=== PATIENT | male | born 1965 | race Caucasian/White ===

== ENCOUNTER 2022-03-10 12:05 | Inpatient (IN) ==
[2022-03-10 13:51] LABS: Appearance Urine Clear (Clear); Bilirubin Urine Negative (Negative); Blood Urine Negative (Negative); Color Urine Yellow; Glucose Urine UA Negative (Negative); Ketones Urine Negative (Negative); Leukocyte Esterase Urine Negative (Negative); Nitrite Urine Negative (Negative); Protein Urine Negative (Negative); Specific Gravity Urine 1.008 (1.000-1.030); Urobilinogen Urine Negative (Negative)
[2022-03-10 13:58] LABS: Albumin Level 4.5 gm/dl (3.4-5.0); Anion Gap 6 (3-11); Bilirubin,Total 0.7 mg/dl (0.2-1.0); Calcium 9.9 mg/dl (8.5-10.1); Carbon Dioxide 28 mmol/L (21-32); Chloride 104 mmol/L (98-107); Potassium 4.3 mmol/L (3.5-5.1); Sodium 138 mmol/L (136-145)
[2022-03-10 14:04] LABS: Alanine Aminotransferase 26 U/L (7-52); Albumin Globulin Ratio 1.4 (0.9-2); Alkaline Phosphatase 84 U/L (34-104); Aspartate Aminotransferase 26 U/L (13-39); BUN Creatinine Ratio 16.3 (10-20); Blood Urea Nitrogen 15 mg/dl (6-23); Est GFR (African American) 107.4 ml/min; Est GFR (Non-African American) 92.6 ml/min; Globulin 3.3 gm/dl (2.5-4.0); Glucose 103 mg/dl (70-99(Fasting)); Total Protein 7.8 gm/dl (6.0-8.3)
[2022-03-10 14:05] LABS: Basophils # (auto) 0.02 K/uL (0-0.2); Basophils % (auto) 0.3 %; Eosinophils # (auto) 0.04 K/uL (0-0.5); Eosinophils % (auto) 0.6 %; Hemoglobin 16.6 g/dL (14.0-18.0); Immature Granulocytes # (auto) 0.01 K/uL (0.00-0.02); Immature Granulocytes % (auto) 0.1 %; Lymphocytes # (auto) 1.78 K/uL (1.2-3.4); Lymphocytes % (auto) 25.4 %; Mean Corpuscular Hemoglobin 33.1 pg (25-34); Mean Corpuscular Hgb Conc 35.3 g/dL (32-36); Mean Corpuscular Volume 93.6 fL (80-100); Mean Platelet Volume 8.8 fL (7.4-10.4); Monocytes # (auto) 0.54 K/uL (0.11-0.59); Monocytes % (auto) 7.7 %; Neutrophils # (auto) 4.63 K/uL (1.4-6.5); Neutrophils % (auto) 65.9 %; Platelet Count 222 K/uL (130-400); RDW Coefficient of Variation 14.2 % (11.5-14.5); RDW Standard Deviation 48.6 fL (36.4-46.3); Red Blood Count 5.02 M/uL (4.7-6.1); White Blood Count 7.02 K/uL (4.8-10.8)
--- NOTE | 2022-03-10 14:51 | Emergency Department Note ---
History of Present Illness General Chief complaint: Illness Stated complaint: NUMBNESS IN FEET AND LEGS, FINGERTIPS Time Seen by Provider: 03/10/22 14:04 Source: patient History of Present Illness Provider complaint: Numbness in the extremities Onset (ago): day(s) Location: upper extremity, lower extremity, left and right Pain Consistency: + constant Maximum Pain Intensity: 7 Quality: + other (Numbness) Relieved By: + none Associated symptoms: + fever/chills (Tactile fever in January but none since) and + headaches (Occasional headaches but no headache today); no chest pain, no cough, no nausea/vomiting or no shortness of breath This is a 56-year-old male who presents with numbness to his extremities. The patient states that he had unprotected sex with men sometime between November and January of this year. He states that he started to get tactile fevers in January and a sore in his mouth. He was originally treated for herpes simplex 1. He then underwent STI testing and had a positive syphilis test. [facility] and [facility] treated with penicillin G on February 19. About 24 hours later he developed numbness to his feet. He thought this was a complication of the penicillin shot and so ignored it. He has had progressive numbness to his feet which then extended into his lower legs about 10 days ago. He now states the numbness is in his arms and sometimes around his lips and his genital area. He does complain of pain to the back of his legs which he describes as a tightening of the muscles. He also states that he now has difficulty walking. He denies having any visual complaints, problems with mentation, weakness, difficulty swallowing or difficulty with his speech. He states that he gets headaches and was told by his doctor to take ibuprofen. He did go back to them recently and they did some blood work which was unremarkable. He does state that he had an HIV this month which was negative. He also had a negative COVID test. He did have a negative syphilis test in April of last year. He denies current fever, cough or cold symptoms, chest pain, shortness of breath, abdominal pain, vomiting, diarrhea or urinary symptoms. Home Medications Medication Instructions Recorded Confirmed Type ibuprofen 200 mg tablet (Advil) 200 mg PO UD PRN 03/10/22 03/10/22 History naproxen sodium 220 mg tablet 220 mg PO UD PRN 03/10/22 03/10/22 History (Aleve) Allergies Allergy/AdvReac Type Severity Reaction Status Date / Time No Known Allergies Allergy Unverified 03/10/22 15:10 Past Med/Surg History Medical History Herpes simplex type 1 infection Social History Smoking Status: Never smoker Feels Safe at Home: Yes Review of Systems See HPI for pertinent positives & negatives. and A total of 10 systems reviewed and were otherwise negative Physical Exam Vital Signs Vital Signs - 24 hr 03/10/22 12:13 03/10/22 14:05 03/10/22 15:00 Temperature 36.5 C Temperature Source Oral Pulse Rate 88 Pulse Rate [Apical] 71 79 Pulse Rhythm [Apical] Regular Regular Pulse Strength [Apical] Normal Normal Respiratory Rate 17 16 20 Respiratory Effort / Characteristics Non-Labored Spontaneous Non-Labored Non-Labored Respiratory Depth Normal Normal Normal Respiratory Pattern Regular Regular Blood Pressure 140/85 Blood Pressure [Left Arm] 137/84 142/89 H Blood Pressure Mean 103 Blood Pressure Mean [Left Arm] 101 106 Blood Pressure Position Sitting Blood Pressure Position [Left Arm] Lying Pulse Oximetry 98 98 98 Oxygen Delivery Method Room Air Room Air Sepsis Recent Fever Within 48 Hours No Sepsis New/Unexplained Change in Mental Status N/A Sepsis Action Taken by Nursing No Action Required 03/10/22 16:00 03/10/22 18:00 Temperature Temperature Source Pulse Rate Pulse Rate [Apical] 91 H 90 Pulse Rhythm [Apical] Regular Regular Pulse Strength [Apical] Normal Respiratory Rate 14 20 Respiratory Effort / Characteristics Non-Labored Spontaneous Non-Labored Respiratory Depth Normal Normal Respiratory Pattern Regular Blood Pressure Blood Pressure [Left Arm] 144/92 H 144/92 H Blood Pressure Mean Blood Pressure Mean [Left Arm] 109 109 Blood Pressure Position Blood Pressure Position [Left Arm] Sitting Pulse Oximetry 96 97 Oxygen Delivery Method Room Air Room Air Sepsis Recent Fever Within 48 Hours Sepsis New/Unexplained Change in Mental Status Sepsis Action Taken by Nursing Constitutional: Vital signs reviewed. Eyes: Pupils are equal round reactive to light. Conjunctiva are noninjected. ENT: Pharynx is clear without erythema or exudate. Mucous membranes are moist. Neck supple without meningeal signs. Respiratory: Clear to auscultation bilaterally. Breath sounds are equal bilaterally. Cardiovascular: Regular rate and rhythm. No rubs or gallops. GI: Soft, nondistended and nontender. Bowel sounds are present. Musculoskeletal: No peripheral edema. No lower extremity tenderness. Integumentary: No cyanosis. or jaundice. Neurologic: The patient is awake and alert. Cranial nerves II-XII are intact. Motor is 5 out of 5 all extremities. Sensation is intact to light touch all extremities with dysesthesia to the lower extremities throughout as well as the hands bilaterally. Normal speech. No pronator drift. No limb ataxia. Wide-based gait. Psychiatric: Normal affect. Procedures Lumbar Puncture Time Out Performed: No Patient Position: upright Skin Prep: Povidone-Iodine 1% Local Anesthetic: lidocaine 1% Amount of anesthesia used (mL): 3 Spinal Needle Gauge: 20G Interspace Used: L4-L5 Fluid Initially Obtained: clear Complications: none Additional Comments: I did obtain informed consent from the patient for lumbar puncture. I did discuss indications, possible complications and the consequences as well as pos sible alternatives with the patient. He was informed of the potential for infection, bleeding at the site and in the dural space, increased pain and headache, nerve damage with permanent neurologic deficits including paralysis. I did answer all of his questions regarding the procedure. He did consent to the procedure. Course Administered Medications Lidocaine (Lidocaine 5% 1 Patch) 1 patch TD HS IZABELA Stop: 04/09/22 20:19 Last Admin: 03/10/22 20:48 Dose: 1 patch Documented by: [id number] Discontinued Medications Acetaminophen (Acetaminophen 500 Mg Tab) 1,000 mg PO NOW STA Stop: 03/10/22 18:11 Last Admin: 03/10/22 18:17 Dose: 1,000 mg Documented by: [id number] Penicillin G Potassium 4 mu/ (Dextrose) 108 mls @ 100 mls/hr IV NOW STA; Protocol Stop: 03/10/22 17:57 Last Infusion: 03/10/22 19:47 Dose: 0 mls/hr Documented by: [id number] Admin: 03/10/22 18:17 Dose: 100 mls/hr Documented by: [id number] Sodium Chloride (Nss 1000ml) 1,000 mls @ 999 mls/hr IV .Q1H1M ONE Stop: 03/10/22 17:53 Last Infusion: 03/10/22 17:30 Dose: 0 mls/hr Documented by: [id number] Admin: 03/10/22 16:30 Dose: 999 mls/hr Documented by: [id number] Ketorolac Tromethamine (Ketorolac Tromethamine 15 Mg/Ml Vial) 15 mg IV NOW ONE Stop: 03/10/22 20:16 Last Admin: 03/10/22 20:48 Dose: 15 mg Documented by: [id number] Medical Decision Making Differential Diagnosis Meningitis, encephalitis, neurosyphilis, tabes dorsalis, intracranial mass, metabolic derangement, transverse myelitis Medical Records Attestation: I reviewed the patient's medical records. I did perform a limited focused review of portions of the patient's old chart on the electronic medical record. The patient has had no prior visits to [facility]. Home Medications Current Medication List: was personally reviewed by me Laboratory Data Attestation: I reviewed the patient's lab results. Result diagrams: 03/10/22 13:24 03/10/22 13:24 Lab Results 03/10/22 03/10/22 03/10/22 Range/Units 13:24 13:24 13:24 WBC 7.02 (4.8-10.8) K/uL RBC 5.02 (4.7-6.1) M/uL Hgb 16.6 (14.0-18.0) g/dL Hct 47.0 (42-52) % MCV 93.6 (80-100) fL MCH 33.1 (25-34) pg MCHC 35.3 (32-36) g/dL RDW Std Deviation 48.6 H (36.4-46.3) fL RDW Coeff of Seven 14.2 (11.5-14.5) % Plt Count 222 (130-400) K/uL MPV 8.8 (7.4-10.4) fL Immature Gran % (Auto) 0.1 % Neut % (Auto) 65.9 % Lymph % (Auto) 25.4 % Tate % (Auto) 7.7 % Eos % (Auto) 0.6 % Baso % (Auto) 0.3 % Neut # (Auto) 4.63 (1.4-6.5) K/uL Lymph # (Auto) 1.78 (1.2-3.4) K/uL Tate # (Auto) 0.54 (0.11-0.59) K/uL Eos # (Auto) 0.04 (0-0.5) K/uL Baso # (Auto) 0.02 (0-0.2) K/uL Immature Gran # (Auto) 0.01 (0.00-0.02) K/uL Sodium 138 (136-145) mmol/L Potassium 4.3 (3.5-5.1) mmol/L Chloride 104 (98-107) mmol/L Carbon Dioxide 28 (21-32) mmol/L Anion Gap 6 (3-11) BUN 15 (6-23) mg/dl Creatinine 0.92 (0.6-1.4) mg/dl Est Cr Clr Drug Dosing Not Reportable Est GFR ( Amer) 107.4 ml/min Est GFR (Non-Af Amer) 92.6 ml/min BUN/Creatinine Ratio 16.3 (10-20) Glucose 103 H (70-99(Fasting)) mg/dl Calcium 9.9 (8.5-10.1) mg/dl Magnesium (1.7-2.4) mg/dl Total Bilirubin 0.7 (0.2-1.0) mg/dl AST 26 (13-39) U/L ALT 26 (7-52) U/L Alkaline Phosphatase 84 (34-104) U/L Total Protein 7.8 (6.0-8.3) gm/dl Albumin 4.5 (3.4-5.0) gm/dl Globulin 3.3 (2.5-4.0) gm/dl Albumin/Globulin Ratio 1.4 (0.9-2) TSH (0.300-4.500) uIu/ml Urine Color Yellow Urine Appearance Clear (Clear) Urine pH 7.0 (4.5-7.5) Ur Specific [place] 1.008 (1.000-1.030) Urine Protein Negative (Negative) Urine Glucose (UA) Negative (Negative) Urine Ketones Negative (Negative) Urine Blood Negative (Negative) Urine Nitrite Negative (Negative) Urine Bilirubin Negative (Negative) Urine Urobilinogen Negative (Negative) Ur Leukocyte Esterase Negative (Negative) Fluid Comment CSF Appearance CSF Color Xanthrochromic CSF WBC (0-5) /uL CSF RBC (0-) /uL CSF Cell Count Tube # CSF Chemistry Tube # CSF Glucose (40-70) mg/dl CSF Total Protein (15-45) mg/dl CSF C.neoform/gat PCR (NotDetected) CSF CMV DNA (PCR) (NotDetected) CSF Enterovirus (PCR) (NotDetected) CSF E. coli K1 (PCR) (NotDetected) CSF H. influenzae (PCR) (NotDetected) CSF HSV I (PCR) (NotDetected) CSF HSV II (PCR) (NotDetected) CSF HHV 6 (PCR) (NotDetected) CSF L.monocytogenes PCR (NotDetected) CSF N. meningitidis PCR (NotDetected) CSF Parechovirus (PCR) (NotDetected) CSF S. agalactiae (PCR) (NotDetected) CSF S. pneumoniae (PCR) (NotDetected) CSF VZV DNA (PCR) (NotDetected) 03/10/22 03/10/22 03/10/22 Range/Units 13:24 13:24 16:45 WBC (4.8-10.8) K/uL RBC (4.7-6.1) M/uL Hgb (14.0-18.0) g/dL Hct (42-52) % MCV (80-100) fL MCH (25-34) pg MCHC (32-36) g/dL RDW Std Deviation (36.4-46.3) fL RDW Coeff of Seven (11.5-14.5) % Plt Count (130-400) K/uL MPV (7.4-10.4) fL Immature Gran % (Auto) % Neut % (Auto) % Lymph % (Auto) % Tate % (Auto) % Eos % (Auto) % Baso % (Auto) % Neut # (Auto) (1.4-6.5) K/uL Lymph # (Auto) (1.2-3.4) K/uL Tate # (Auto) (0.11-0.59) K/uL Eos # (Auto) (0-0.5) K/uL Baso # (Auto) (0-0.2) K/uL Immature Gran # (Auto) (0.00-0.02) K/uL Sodium (136-145) mmol/L Potassium (3.5-5.1) mmol/L Chloride (98-107) mmol/L Carbon Dioxide (21-32) mmol/L Anion Gap (3-11) BUN (6-23) mg/dl Creatinine (0.6-1.4) mg/dl Est Cr Clr Drug Dosing Est GFR ( Amer) ml/min Est GFR (Non-Af Amer) ml/min BUN/Creatinine Ratio (10-20) Glucose (70-99(Fasting)) mg/dl Calcium (8.5-10.1) mg/dl Magnesium 1.9 (1.7-2.4) mg/dl Total Bilirubin (0.2-1.0) mg/dl AST (13-39) U/L ALT (7-52) U/L Alkaline Phosphatase (34-104) U/L Total Protein (6.0-8.3) gm/dl Albumin (3.4-5.0) gm/dl Globulin (2.5-4.0) gm/dl Albumin/Globulin Ratio (0.9-2) TSH 1.307 (0.300-4.500) uIu/ml Urine Color Urine Appearance (Clear) Urine pH (4.5-7.5) Ur Specific [place] (1.000-1.030) Urine Protein (Negative) Urine Glucose (UA) (Negative) Urine Ketones (Negative) Urine Blood (Negative) Urine Nitrite (Negative) Urine Bilirubin (Negative) Urine Urobilinogen (Negative) Ur Leukocyte Esterase (Negative) Fluid Comment CSF Appearance CSF Color Xanthrochromic CSF WBC (0-5) /uL CSF RBC (0-) /uL CSF Cell Count Tube # CSF Chemistry Tube # CSF Glucose (40-70) mg/dl CSF Total Protein (15-45) mg/dl CSF C.neoform/gat PCR Not Detected (NotDetected) CSF CMV DNA (PCR) Not Detected (NotDetected) CSF Enterovirus (PCR) Not Detected (NotDetected) CSF E. coli K1 (PCR) Not Detected (NotDetected) CSF H. influenzae (PCR) Not Detected (NotDetected) CSF HSV I (PCR) Not Detected (NotDetected) CSF HSV II (PCR) Not Detected (NotDetected) CSF HHV 6 (PCR) Not Detected (NotDetected) CSF L.monocytogenes PCR Not Detected (NotDetected) CSF N. meningitidis PCR Not Detected (NotDetected) CSF Parechovirus (PCR) Not Detected (NotDetected) CSF S. agalactiae (PCR) Not Detected (NotDetected) CSF S. pneumoniae (PCR) Not Detected (NotDetected) CSF VZV DNA (PCR) Not Detected (NotDetected) 03/10/22 03/10/22 Range/Units 16:45 16:45 WBC (4.8-10.8) K/uL RBC (4.7-6.1) M/uL Hgb (14.0-18.0) g/dL Hct (42-52) % MCV (80-100) fL MCH (25-34) pg MCHC (32-36) g/dL RDW Std Deviation (36.4-46.3) fL RDW Coeff of Seven (11.5-14.5) % Plt Count (130-400) K/uL MPV (7.4-10.4) fL Immature Gran % (Auto) % Neut % (Auto) % Lymph % (Auto) % Tate % (Auto) % Eos % (Auto) % Baso % (Auto) % Neut # (Auto) (1.4-6.5) K/uL Lymph # (Auto) (1.2-3.4) K/uL Tate # (Auto) (0.11-0.59) K/uL Eos # (Auto) (0-0.5) K/uL Baso # (Auto) (0-0.2) K/uL Immature Gran # (Auto) (0.00-0.02) K/uL Sodium (136-145) mmol/L Potassium (3.5-5.1) mmol/L Chloride (98-107) mmol/L Carbon Dioxide (21-32) mmol/L Anion Gap (3-11) BUN (6-23) mg/dl Creatinine (0.6-1.4) mg/dl Est Cr Clr Drug Dosing Est GFR ( Amer) ml/min Est GFR (Non-Af Amer) ml/min BUN/Creatinine Ratio (10-20) Glucose (70-99(Fasting)) mg/dl Calcium (8.5-10.1) mg/dl Magnesium (1.7-2.4) mg/dl Total Bilirubin (0.2-1.0) mg/dl AST (13-39) U/L ALT (7-52) U/L Alkaline Phosphatase (34-104) U/L Total Protein (6.0-8.3) gm/dl Albumin (3.4-5.0) gm/dl Globulin (2.5-4.0) gm/dl Albumin/Globulin Ratio (0.9-2) TSH (0.300-4.500) uIu/ml Urine Color Urine Appearance (Clear) Urine pH (4.5-7.5) Ur Specific [place] (1.000-1.030) Urine Protein (Negative) Urine Glucose (UA) (Negative) Urine Ketones (Negative) Urine Blood (Negative) Urine Nitrite (Negative) Urine Bilirubin (Negative) Urine Urobilinogen (Negative) Ur Leukocyte Esterase (Negative) Fluid Comment CSF Appearance Clear CSF Color Colorless Xanthrochromic No xanthochromia CSF WBC 0 (0-5) /uL CSF RBC 0 (0-) /uL CSF Cell Count Tube # 3 CSF Chemistry Tube # 1 CSF Glucose 67 (40-70) mg/dl CSF Total Protein 81.1 H (15-45) mg/dl CSF C.neoform/gat PCR (NotDetected) CSF CMV DNA (PCR) (NotDetected) CSF Enterovirus (PCR) (NotDetected) CSF E. coli K1 (PCR) (NotDetected) CSF H. influenzae (PCR) (NotDetected) CSF HSV I (PCR) (NotDetected) CSF HSV II (PCR) (NotDetected) CSF HHV 6 (PCR) (NotDetected) CSF L.monocytogenes PCR (NotDetected) CSF N. meningitidis PCR (NotDetected) CSF Parechovirus (PCR) (NotDetected) CSF S. agalactiae (PCR) (NotDetected) CSF S. pneumoniae (PCR) (NotDetected) CSF VZV DNA (PCR) (NotDetected) Imaging Data Radiologist's Impression: Head CT 03/10/22 14:37 CT SCAN OF THE BRAIN WITHOUT IV CONTRAST CLINICAL HISTORY: Ataxia. COMPARISON STUDY: No priors. TECHNIQUE: Unenhanced axial CT scan of the brain is performed from the vertex to the skull base. A dose lowering technique was utilized adhering to the principles of ALARA. CT DOSE: 614.27 mGy.cm FINDINGS: Brain parenchyma: The brain parenchyma is normal in appearance. There is no hemorrhage, mass effect, or evidence of acute territorial ischemia by CT criteria. Truong-white matter differentiation is preserved. No extra-axial fluid collection is seen. Ventricles, sulci, cisterns: Normal in configuration. Intracranial vasculature: There is mild atherosclerotic calcification of the cavernous carotid arteries. Calvarium: Unremarkable. Sinuses and mastoids: The visualized paranasal sinuses are clear. The mastoid air cells are well pneumatized. Orbits: The bony orbits are grossly intact. IMPRESSION: There is no hemorrhage, mass effect, or evidence of acute territorial ischemia by CT criteria. ACT 112: Negative or not required by law. Electronically signed by: Kendall Gaitan M.D. 03/10/2022 3:43 PM MDM Narrative I did evaluate the patient as noted above. The patient is presenting with numbness to his legs which started at his feet 24 hours after receiving a penicillin shot for syphilis. He has subsequently developed numbness going up into his calves as well as his arms and more recently in his genitalia. He has some pain in his mid back as well as behind his calves. For the past week he has been having difficulty with balance and gait. On exam he does have dysesthesias to his legs and hands and has a wide-based unsteady gait. I was concerned about the possibility of neurosyphilis. He may have had asymptomatic neurosyphilis for some time which is now becoming symptomatic. Of course, other etiologies are possible. IV access was established. I did order a urine analysis. There is no evidence of infection. I did order and review the patient's blood work as noted in the electronic medical record. CBC is unremarkable without leukocytosis or anemia. Electrolytes and LFTs are unremarkable. TSH is within normal limits. I did order a FTA/ABS as well as an RPR which are pending. I did order a CT of the head is. I did review the images myself as well as the radiology report as described above. There is no evidence of acute intracranial abnormality. I did obtain informed consent for a lumbar puncture. I did discuss the case with Dr. Ramírez of neurology who agreed with my plan and he recommended I speak to an infectious disease doctor. As we do not have an infectious disease doctor at this hospital I did speak to Dr. Kevin at [facility]. He was also in agreement with my plan to perform lumbar puncture, treat empirically with penicillin and admit for further hospitalization regardless of the results. He recommended MRI of the spine during his hospitalization to evaluate for possible transverse myelitis or other etiologies. I did perform the lumbar puncture. He was given a liter of normal saline IV afterwards and 4,000,000 units of penicillin G. He did develop a headache and was given Tylenol p.o. CSF Gram stain is negative. Cell count shows 0 WBCs and 0 RBCs. Glucose is 67 and total protein is elevated at 81. CSF studies for meningitis are currently pending and CSF VDRL is also pending. I did discuss the test results with the patient. He will be hospitalized for further care and evaluation. I did discuss the case with the hospitalist and correctional case records supervisor. Impression & Plan Ataxia, Numbness and tingling in both hands, Numbness and tingling of both legs Discharge Plan Visit Data Chief Complaint: Illness Stated Complaint: NUMBNESS IN FEET AND LEGS, FINGERTIPS ED Provider: Alex Wayne Discharge Problem: Ataxia, Numbness and tingling in both hands, Numbness and tingling of both legs Patient Disposition: Home - Self-Care Forms Stand Alone Forms: [facility], Virtual Emergency Department, Important Visit Information Prescriptions Prescriptions: No Action naproxen sodium [Aleve] 220 mg Tablet 220 mg PO UD PRN (Reason: Pain) RF: 0 ibuprofen [Advil] 200 mg Tablet 200 mg PO UD PRN (Reason: Pain) RF: 0 Referrals Referrals: PCP,NO [Primary Care Provider] -
--- NOTE | 2022-03-10 15:44 | CT Scan Report ---
CT SCAN OF THE BRAIN WITHOUT IV CONTRAST CLINICAL HISTORY: Ataxia. COMPARISON STUDY: No priors. TECHNIQUE: Unenhanced axial CT scan of the brain is performed from the vertex to the skull base. A d ose lowering technique was utilized adhering to the principles of ALARA. CT DOSE: 614.27 mGy.cm FINDINGS: Brain parenchyma: The brain parenchyma is normal in appearance. There is no hemorrhage, mass effect, or evidence of acute territorial ischemia by CT criteria. Truong-white matter differentiation is preser denise. No extra-axial fluid collection is seen. Ventricles, sulci, cisterns: Normal in configuration. Intracranial vasculature: There is mild atherosclerotic calcification of the cavernous carotid arteri es. Calvarium: Unremarkable. Sinuses and mastoids: The visualized paranasal sinuses are clear. The mastoid air cells are well pneu matized. Orbits: The bony orbits are grossly intact. IMPRESSION: There is no hemorrhage, mass effect, or evidence of acute territorial ischemia by CT cri teria. ACT 112: Negative or not required by law. Electronically signed by: Kendall Gaitan M.D. 03/10/2022 3:43 PM
[2022-03-10] MEDS ORDERED: PENICILLIN G POTASSIUM 4 MU in DEXTROSE 5% 100 ML IV STA (16:53)
[2022-03-10] MEDS ORDERED: SODIUM CHLORIDE 0.9% 1000ML 1,000 ML IV ONE (16:53)
[2022-03-10 17:29] LABS: Total Protein CSF 81.1 mg/dl (15-45)
[2022-03-10] MEDS ORDERED: ACETAMINOPHEN 500 MG TAB PO STA (18:10)
[2022-03-10 18:18] LABS: Appearance CSF Clear; CSF Count Tube # 3; CSF Xanthrochromic No xanthochromia; Color CSF Colorless; Red Blood Cell CSF (A) 0 /uL (0-); White Blood Cell CSF (A) 0 /uL (0-5)
[2022-03-10 18:54] LABS: Cryptococcus neoformans/ga PCR Not Detected (NotDetected); Cytomegalovirus PCR Not Detected (NotDetected); Enterovirus PCR Not Detected (NotDetected); Escherichia coli K1 PCR Not Detected (NotDetected); Haemophilius influenzae PCR Not Detected (NotDetected); Herpes Simplex Virus 1 PCR Not Detected (NotDetected); Herpes Simplex Virus 2 PCR Not Detected (NotDetected); Human Herpes Virus 6 PCR Not Detected (NotDetected); Human Parechovirus PCR Not Detected (NotDetected); Listeria monocytogenes PCR Not Detected (NotDetected); Neisseria meningitidis PCR Not Detected (NotDetected); Streptococcus agalactiae PCR Not Detected (NotDetected); Streptococcus pneumoniae PCR Not Detected (NotDetected); Varicella Zoster Virus PCR Not Detected (NotDetected)
[2022-03-10] MEDS ORDERED: KETOROLAC TROMETHAMINE 15 MG/ML VIAL IV ONE (20:15)
--- NOTE | 2022-03-10 20:15 | History & Physical Report ---
Date of Service March 10, 2022 Assessment & Plan (1) Back pain of thoracolumbar region: Plan: With myelopathy/neuropathy symptoms ? Tertiary syphilis (timing of late neurologic complication somewhat unusual given recent diagnosis of primary syphilis by [facility] a few weeks ago) Differential diagnosis: Transverse myelitis, spinal cord tumor, WAFER ABRADING MACHINE TENDER Lyme Patient nontoxic. Situational hypertension OBS [facility] Analgesia Check Lyme screen [facility] consult Re: Back pain with neurologic symptoms, history of primary syphilis status post penicillin Rx (ER provider already in touch with [facility] specialist Dr. Kevin who recommends presumptive treatment for tertiary syphilis for now. Dr. Kevin further recommends MRI imaging of the spine to rule out other potential explanations for patient's back pain/neurologic symptoms.) Further management pending work-up results. DVT prophylaxis. Lovenox subcu Full code Patient requests for his medical information to be kept confidential and not to be disclosed to anybody without his permission ( and family included). Text document was generated using [employer] voice recognition software. It may contain grammatical or spelling errors. Kindly contact undersigned for clarification of any documentation item in question. History of Present Illness Chief Complaint: Worsening back pain, weakness/numbness of the legs Primary Care Provider: Dr. Moraes History obtained from patient and records. Medical history significant for recent diagnosis of syphilis. 4 months ago, patient noted intermittent fever, chills with occasional headaches. No cough symptoms. COVID-19 exposure at home. Patient received COVID-19 vac cination. Last month, patient developed a mouth sore attributed to HSV by local urgent care center. Improved by outpatient antiviral course. Patient had recurrence of mouth sore a few weeks later. STD testing performed by local urgent care center. Patient tested positive for syphilis. Patient admits to sexual contact with other men without the knowledge of his . Patient directed to local [facility] for evaluation of positive syphilis test. Outpatient HIV test negative as per patient. Patient given 1 dose of IM Penicillin 2 weeks ago for primary syphilis as per patient. Last week, patient noted worsening mid back pain with some radiation to the upper arms and lower extremities. Progressive lower extremity weakness and numbness as well. Some tingling on both feet. Patient having more trouble walking and requiring a cane to walk. No recent trauma. No recollection of recent tick exposure. Patient sent to ER for evaluation for worsening symptoms. Diagnostic LP done at the ER. Penicillin administered at the ER for possible tertiary syphilis as per [facility] recommendation. 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 Allergies Allergy/AdvReac Type Severity Reaction Status Date / Time No Known Allergies Allergy Unverified 03/10/22 15:10 Home Medications Medication Instructions Recorded Confirmed Type ibuprofen 200 mg tablet (Advil) 200 mg PO UD PRN 03/10/22 03/10/22 History naproxen sodium 220 mg tablet 220 mg PO UD PRN 03/10/22 03/10/22 History (Aleve) Past Med/Surg History Medical History Herpes simplex type 1 infection Social History Smoking Status: Never smoker Second Hand Exposure: No; Do You Dip or Chew Tobacco: No; Tobacco Cessation Education Requested by Patient: No Hx Alcohol Use: Yes Alcohol type: wine Hx Substance Use: No Preferred Language: Kiswahili Communication Ability: Effective Electronic 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 Required: No Beliefs That Will Affect Care: None Current Living Situation: Spouse Other Information That Helps Us Care for You: No Feels Safe at Home: Yes Safety Concerns: Feels Safe At This Time Assistive Devices: Cane Review of Systems Review of Systems: As per HPI, all other systems reviewed and negative Physical Exam Physical Exam: GENERAL: Slightly uncomfortable, pleasant, no respiratory distress SKIN: Normal color, warm HEENT: bespectacled, pinkp alpebral conjunctivae, no ptosis, moist buccal mucosa NECK : Supple, no tenderness CHEST : CTA, no tenderness HEART : RRR, no obvious murmurs BACK : Mid back tenderness ABDOMEN: no distention, nontender EXTREMITIES : No LE swelling/tenderness, no other conspicuous deformities noted NEUROLOGIC : Coherent, no facial asymmetry, MMTS : BUE 4/5, BLE 3/5, gait and stance not assessed Results & Data Results & Data ([place]) Vital Signs (Past 12 Hours) Vital Signs Temp Pulse Pulse Resp BP BP Pulse Ox 03/10/22 18:00 90 20 144/92 H 97 03/10/22 16:00 91 H 14 144/92 H 96 03/10/22 15:00 79 20 142/89 H 98 03/10/22 14:05 71 16 137/84 98 03/10/22 12:13 36.5 C 88 17 140/85 98 Laboratory Results Laboratory Results WBC 7.02 K/uL (4.8-10.8) 03/10/22 13:24 RBC 5.02 M/uL (4.7-6.1) 03/10/22 13:24 Hgb 16.6 g/dL (14.0-18.0) 03/10/22 13:24 Hct 47.0 % (42-52) 03/10/22 13:24 MCV 93.6 fL (80-100) 03/10/22 13:24 MCH 33.1 pg (25-34) 03/10/22 13:24 MCHC 35.3 g/dL (32-36) 03/10/22 13:24 RDW Std Deviation 48.6 fL (36.4-46.3) H 03/10/22 13:24 RDW Coeff of Seven 14.2 % (11.5-14.5) 03/10/22 13:24 Plt Count 222 K/uL (130-400) 03/10/22 13:24 MPV 8.8 fL (7.4-10.4) 03/10/22 13:24 Immature Gran % (Auto) 0.1 % 03/10/22 13:24 Neut % (Auto) 65.9 % 03/10/22 13:24 Lymph % (Auto) 25.4 % 03/10/22 13:24 Bremer % (Auto) 7.7 % 03/10/22 13:24 Eos % (Auto) 0.6 % 03/10/22 13:24 Baso % (Auto) 0.3 % 03/10/22 13:24 Neut # (Auto) 4.63 K/uL (1.4-6.5) 03/10/22 13:24 Lymph # (Auto) 1.78 K/uL (1.2-3.4) 03/10/22 13:24 Bremer # (Auto) 0.54 K/uL (0.11-0.59) 03/10/22 13:24 Eos # (Auto) 0.04 K/uL (0-0.5) 03/10/22 13:24 Baso # (Auto) 0.02 K/uL (0-0.2) 03/10/22 13:24 Immature Gran # (Auto) 0.01 K/uL (0.00-0.02) 03/10/22 13:24 Sodium 138 mmol/L (136-145) 03/10/22 13:24 Potassium 4.3 mmol/L (3.5-5.1) 03/10/22 13:24 Chloride 104 mmol/L (98-107) 03/10/22 13:24 Carbon Dioxide 28 mmol/L (21-32) 03/10/22 13:24 Anion Gap 6 (3-11) 03/10/22 13:24 BUN 15 mg/dl (6-23) 03/10/22 13:24 Creatinine 0.92 mg/dl (0.6-1.4) 03/10/22 13:24 Est Cr Clr Drug Dosing Not Reportable 03/10/22 13:24 Est GFR ( Amer) 107.4 ml/min 03/10/22 13:24 Est GFR (Non-Af Amer) 92.6 ml/min 03/10/22 13:24 BUN/Creatinine Ratio 16.3 (10-20) 03/10/22 13:24 Glucose 103 mg/dl (70-99(Fasting)) H 03/10/22 13:24 Calcium 9.9 mg/dl (8.5-10.1) 03/10/22 13:24 Total Bilirubin 0.7 mg/dl (0.2-1.0) 03/10/22 13:24 AST 26 U/L (13-39) 03/10/22 13:24 ALT 26 U/L (7-52) 03/10/22 13:24 Alkaline Phosphatase 84 U/L (34-104) 03/10/22 13:24 Total Protein 7.8 gm/dl (6.0-8.3) 03/10/22 13:24 Albumin 4.5 gm/dl (3.4-5.0) 03/10/22 13:24 Globulin 3.3 gm/dl (2.5-4.0) 03/10/22 13:24 Albumin/Globulin Ratio 1.4 (0.9-2) 03/10/22 13:24 Urine Color Yellow 03/10/22 13:24 Urine Appearance Clear (Clear) 03/10/22 13:24 Urine pH 7.0 (4.5-7.5) 03/10/22 13:24 Ur Specific Florence 1.008 (1.000-1.030) 03/10/22 13:24 Urine Protein Negative (Negative) 03/10/22 13:24 Urine Glucose (UA) Negative (Negative) 03/10/22 13:24 Urine Ketones Negative (Negative) 03/10/22 13:24 Urine Blood Negative (Negative) 03/10/22 13:24 Urine Nitrite Negative (Negative) 03/10/22 13:24 Urine Bilirubin Negative (Negative) 03/10/22 13:24 Urine Urobilinogen Negative (Negative) 03/10/22 13:24 Ur Leukocyte Esterase Negative (Negative) 03/10/22 13:24 Fluid Comment 03/10/22 16:45 CSF Appearance Clear 03/10/22 16:45 CSF Color Colorless 03/10/22 16:45 Xanthrochromic No xanthochromia 03/10/22 16:45 CSF WBC 0 /uL (0-5) 03/10/22 16:45 CSF RBC 0 /uL (0-) 03/10/22 16:45 CSF Cell Count Tube # 3 03/10/22 16:45 CSF Chemistry Tube # 1 03/10/22 16:45 CSF Glucose 67 mg/dl (40-70) 03/10/22 16:45 CSF Total Protein 81.1 mg/dl (15-45) H 03/10/22 16:45 CSF C.neoform/gat PCR Not Detected (NotDetected) 03/10/22 16:45 CSF CMV DNA (PCR) Not Detected (NotDetected) 03/10/22 16:45 CSF Enterovirus (PCR) Not Detected (NotDetected) 03/10/22 16:45 CSF E. coli K1 (PCR) Not Detected (NotDetected) 03/10/22 16:45 CSF H. influenzae (PCR) Not Detected (NotDetected) 03/10/22 16:45 CSF HSV I (PCR) Not Detected (NotDetected) 03/10/22 16:45 CSF HSV II (PCR) Not Detected (NotDetected) 03/10/22 16:45 CSF HHV 6 (PCR) Not Detected (NotDetected) 03/10/22 16:45 CSF L.monocytogenes PCR Not Detected (NotDetected) 03/10/22 16:45 CSF N. meningitidis PCR Not Detected (NotDetected) 03/10/22 16:45 CSF Parechovirus (PCR) Not Detected (NotDetected) 03/10/22 16:45 CSF S. agalactiae (PCR) Not Detected (NotDetected) 03/10/22 16:45 CSF S. pneumoniae (PCR) Not Detected (NotDetected) 03/10/22 16:45 CSF VZV DNA (PCR) Not Detected (NotDetected) 03/10/22 16:[address] 03/10/22 14:37 CT SCAN OF THE BRAIN WITHOUT IV CONTRAST CLINICAL HISTORY: Ataxia. COMPARISON STUDY: No priors. TECHNIQUE: Unenhanced axial CT scan of the brain is performed from the vertex to the skull base. A dose lowering technique was utilized adhering to the principles of ALARA. CT DOSE: 614.27 mGy.cm FINDINGS: Brain parenchyma: The brain parenchyma is normal in appearance. There is no hemorrhage, mass effect, or evidence of acute territorial ischemia by CT criteria. Truong-white matter differentiation is preserved. No extra-axial fluid collection is seen. Ventricles, sulci, cisterns: Normal in configuration. Intracranial vasculature: There is mild atherosclerotic calcification of the cavernous carotid arteries. Calvarium: Unremarkable. Sinuses and mastoids: The visualized paranasal sinuses are clear. The mastoid air cells are well pneumatized. Orbits: The bony orbits are grossly intact. IMPRESSION: There is no hemorrhage, mass effect, or evidence of acute territorial ischemia by CT criteria. ACT 112: Negative or not required by law. Electronically signed by: Kendall Gaitan M.D. 03/10/2022 3:43 PM
[2022-03-10] MEDS ORDERED: LORazepam 2 MG/1 ML VIAL IV PRN (20:25)
[2022-03-10] MEDS: LIDOCAINE 5% 1 PATCH TD SCH (20:48)
[2022-03-10] MEDS ORDERED: PENICILLIN G POTASSIUM 4 MU in DEXTROSE 5% 100 ML IV SCH (22:00)
[2022-03-10 22:04] LABS: Lyme Ab IgM w/WB Rflx Negative (Negative)
[2022-03-10 22:06] LABS: Lyme Ab IgG w/WB Rflx Positive (Negative)
[2022-03-11] MEDS: IBUPROFEN 200 MG TAB PO PRN ×4 (00:11→20:33)
[2022-03-11] MEDS: LORazepam 2 MG/1 ML VIAL IV PRN (00:11)
[2022-03-11] MEDS ORDERED: GADOBUTROL 65ML VIAL IV ONE (01:44)
[2022-03-11] MEDS ORDERED: Flu Vaccine (Fluarix) 0.5mL SYR (Standard Dose) IM ONE (02:15)
[2022-03-11] MEDS: KETOROLAC TROMETHAMINE 15 MG/ML VIAL IV PRN (02:17)
[2022-03-11] MEDS: PENICILLIN G POTASSIUM 4 MU in DEXTROSE 5% 100 ML IV SCH ×6 (02:23→22:31)
[2022-03-11] MEDS ORDERED: SODIUM CHLORIDE 0.9% 1000ML 1,000 ML IV ONE (04:32)
[2022-03-11] MEDS ORDERED: KETOROLAC TROMETHAMINE 15 MG/ML VIAL IV ONE (04:32)
[2022-03-11 04:51] LABS: Rapid Plasma Reagin Reactive (Nonreactive)
[2022-03-11] MEDS: traMADol HCL 50 MG TABLET PO PRN ×5 (06:33→22:28)
[2022-03-11] MEDS: ENOXAPARIN INJ 40 MG/0.4 ML SYR SQ SCH (07:17)
--- NOTE | 2022-03-11 08:38 | Magnetic Resonance Report ---
CLINICAL HISTORY: arm/leg weakness TECHNIQUE: MRI of the cervical spine is performed utilizing various T1 and T2 sequences in the axial and sagittal planes. IV contrast was administered for this examination. Comparison: None available at the time of this dictation. FINDINGS: Cervical spine: There is grade 1 retrolisthesis of C5-C6. The atlantodental articulation appears main tained. No destructive bony lesion is seen. Anterior epidural enhancement is favored to represent a venous prominence rather than spinal lesion. Intervertebral discs: Degenerative changes are noted in the discs and vertebral bodies. Spinal cord: The cervical spinal cord is normal in morphology and signal intensity. C2-C3: Unremarkable. C3-C4: A small posterior disc bulge is seen without significant canal stenosis. C4-C5: Broad-based posterior disc bulge, facet arthropathy, and retrolisthesis combine to create mild canal stenosis. There is mild bilateral neuroforaminal stenosis. C5-C6: Unremarkable. C6-C7: Unremarkable. C7-T1: Unremarkable. Soft tissues: The paraspinous and prevertebral soft tissues are normal in appearance. Brain parenchyma: Partially imaged brain parenchyma at the skull base is within normal limits. IMPRESSION: Degenerative changes as above resulting in up to mild canal stenosis. ACT 112: Negative or not required by law. Electronically signed by: Julio Cesar Bates M.D. 03/11/2022 8:36 AM
--- NOTE | 2022-03-11 08:41 | Magnetic Resonance Report ---
MR lumbar spine wo/w con CLINICAL HISTORY: arm/leg weakness TECHNIQUE: 3 plane localizer images, sagittal T2, sagittal T1, sagittal STIR, axial T1, axial T2 savanna g with postcontrast axial T1 and sagittal T1 fat-saturated sequences were obtained of the lumbar spin e, before and after intravenous administration of 12 mL of MultiHance. Comparison: None available at the time of this dictation. FINDINGS: The alignment is anatomical. Degenerative changes are noted in the discs and vertebral bodies. L1-L2: Small posterior disc bulge without significant canal or neuroforaminal stenosis. L2-L3: No significant abnormality. L3-L4: No significant abnormality. L4-L5: A small posterior disc bulge is seen without significant canal or neuroforaminal stenosis. L5-S1: No significant abnormality. The spinal ligaments are intact, without evidence of disruption or abnormal signal intensity. The spi nal cord is normal in signal intensity and there is no evidence of cord contusion. There is no eviden ce of an extradural, intradural, extramedullary or intramedullary lesion. Visualized soft tissues are normal. IMPRESSION: Mild degenerative disc disease without significant stenosis. No enhancing lesions are seen. ACT 112: Negative or not required by law. Electronically signed by: Julio Cesar Bates M.D. 03/11/2022 8:40 AM
[2022-03-11 08:58] LABS: Basophils # (auto) 0.02 K/uL (0-0.2); Basophils % (auto) 0.2 %; Eosinophils # (auto) 0.06 K/uL (0-0.5); Eosinophils % (auto) 0.7 %; Hematocrit (blood only) 41.7 % (42-52); Hemoglobin 14.4 g/dL (14.0-18.0); Immature Granulocytes # (auto) 0.01 K/uL (0.00-0.02); Immature Granulocytes % (auto) 0.1 %; Lymphocytes % (auto) 22.8 %; Mean Corpuscular Hgb Conc 34.5 g/dL (32-36); Mean Corpuscular Volume 92.7 fL (80-100); Mean Platelet Volume 9.1 fL (7.4-10.4); Monocytes % (auto) 8.4 %; Neutrophils # (auto) 5.63 K/uL (1.4-6.5); Neutrophils % (auto) 67.8 %; Platelet Count 203 K/uL (130-400); RDW Standard Deviation 47.5 fL (36.4-46.3); White Blood Count 8.32 K/uL (4.8-10.8)
--- NOTE | 2022-03-11 09:27 | Magnetic Resonance Report ---
MRI OF THE THORACIC SPINE COMBO CLINICAL HISTORY: Upper and lower extremity weakness. Recent diagnosis of syphilis. COMPARISON STUDY: No priors. TECHNIQUE: MRI of the thoracic spine is performed utilizing various T1 and T2 sequences in the axial and sagittal planes. Contrast-enhanced sequences were acquired following the IV administration of 7.5 cc of Gadavist. FINDINGS: Vertebral body height and alignment are maintained throughout the cervical spine. Normal ma rrow signal intensity is preserved throughout the visualized bony structures. The spinous processes a ppear intact. No destructive bony lesion is seen. The intervertebral discs are normal in height and s ignal intensity. Minimal disc bulge eccentric to the left is seen at T8-T9. There is no large disc he rniation or central canal stenosis. There is no clear evidence of epidural fluid collection. There is thickening and enhancement of the posterior epidural space seen from T2 through T6. There is no sign ificant associated mass effect and this likely represents prominent epidural fat and venous structure s. The thoracic spinal cord is normal in morphology and signal intensity. The conus medullaris termin ates at the level of L1. No abnormal postcontrast enhancement is identified. There is no evidence of high-grade neural foraminal stenosis throughout the thoracic region. The paraspinous soft tissues are within normal limits. The lung parenchyma is grossly unremarkable but not well evaluated by MRI. A 1 .6 cm cyst is noted in the upper pole of the right kidney. IMPRESSION: 1. There is no disc herniation, central canal stenosis, or neural foraminal narrowing seen throughout the thoracic region. 2. No osseous abnormality is seen involving the thoracic spine. 3. The thoracic cord is normal in morphology and signal intensity with no abnormal postcontrast enhan cement. 4. No epidural fluid collection is clearly identified. 5. There is thickening and enhancement of the epidural space posteriorly seen from T2 through T6. The re is no associated mass effect and this likely represents prominent epidural fat and venous structur es. If the patient clinically worsens a short-term follow-up examination could be considered for reas seslupillo. Dictated: 03/11/2022 8:23 AM Transcribed: 03/11/2022 9:13 AM Amber [id number] [email or web address] Electronically signed by: Kendall Gaitan M.D. 03/11/2022 9:26 AM
[2022-03-11] MEDS ORDERED: cefTRIAXone SODIUM 2,000 MG in DEXTROSE 5% 50 ML IV SCH (10:00)
--- NOTE | 2022-03-11 19:13 | Hospitalist Progress Note ---
Date of Service March 11, 2022 Assessment & Plan (1) Numbness and tingling in both hands: Plan: Might be related to Lyme disease VS neurosyphillis ( doubt due to the duration of his syphilis diagnosis ) CT head showed no acute intracranial abnormality MRI cervical showed degenerative changes as above resulting in up to mild canal stenosis. Lumbar MRI showed mild degenerative disc disease without significant stenosis. No enhancing lesions are seen. MRI thoracic showed thickening and enhancement of the epidural space posteriorly seen from T2 through T6. no associated mass effect and this likely represents prominent epidural fat and venous structures. LP done showed no Lyme detected Protein Elevated on CSF CSF VDRL pending Continue pain control with tramaol NSAID/ Tylenol Will discuss MRI thoracic result with spine orthopedic RPR and Lyme titer positive Continue physical therapy and occupational therapy Syphilis Patient requests for his medical information to be kept confidential and not to be disclosed to anybody without his permission Pt does not want us to mention the word syphilis in front of his RPR testing positive Patient directed to local [facility] for evaluation of positive syphilis test. Received 1 dose of IM Penicillin 2 weeks ago outpatient Continue IV penicillin ID consulted- pending Will encourage patient to discuss his positive syphilis with his that she can get testing and treated (if testing positive) Lyme disease Lyme IGG ab positive Pt said that he never treated for lyme disease in the past Western Blot pending Currently on Penicillin for Syphilis DVT px on Lovenox Code status Full code (2) Numbness and tingling of both legs: Plan: Possible Admission and Anticipated Discharge Date Admission Date: March 10, 2022 Subjective Patient was seen and examined for follow-up of back pain associated with lower extremity numbness Lying in bed with no acute distress. Patient said back pain is improved He said that his numbness seem to feel better Denies any fever, palpitation, dizziness and SOB Review of Systems Review of Systems: All systems reviewed & are unremarkable except as noted in Subjective Physical Exam Physical Exam: General- No acute distress Head- atraumatic Eyes- PERRL, EOMI, ENT- oropharynx clear Neck- supple, no JVD Lungs- clear to auscultation Heart- regular rhythm; no murmur Abdomen- normal bowel sounds, soft, nontender Extremities- no calf tenderness Neuro- alert, oriented x 3; PERRL, EOMI; no facial palsy; no dysarthria Skin- warm & dry Results & Data Results & Data ([facility]) Vital Signs (Past 12 Hours) Vital Signs Temp Pulse Resp BP Pulse Ox 03/11/22 15:16 36.7 C 81 16 120/77 94 03/11/22 07:36 36.7 C 64 16 157/92 H 95
[2022-03-11] MEDS: LIDOCAINE 5% 1 PATCH TD SCH (20:30)
[2022-03-11] MEDS: PROMETHAZINE HCL 6.25 MG in SODIUM CHLORIDE 0.9% 50 ML IV PRN (22:36)
[2022-03-12] MEDS: PENICILLIN G POTASSIUM 4 MU in DEXTROSE 5% 100 ML IV SCH ×6 (01:52→22:58)
[2022-03-12] MEDS: IBUPROFEN 200 MG TAB PO PRN ×2 (08:21→19:31)
[2022-03-12] MEDS: KETOROLAC TROMETHAMINE 15 MG/ML VIAL IV PRN ×2 (08:22→19:32)
[2022-03-12] MEDS: ENOXAPARIN INJ 40 MG/0.4 ML SYR SQ SCH (08:23)
[2022-03-12] MEDS: ACETAMINOPHEN 325 MG TAB PO PRN ×2 (09:58→21:14)
--- NOTE | 2022-03-12 15:09 | Neurology Consultation ---
Date of Consultation March 12, 2022 Assessment & Plan (1) Ataxia: 1. MRI c/t/l spine no evidence of severe compression or enhancement 2. LP - pending- protein CSF 81.1 3. would start IV IG 0.4 g per kg x 5 days 4. continue to monitor 5. fall precautions (2) Numbness and tingling in both hands: 1. decreased sensation to light cool touch (3) Numbness and tingling of both legs: Supervising Physician Co-Signing Physician Notes A 56 year old male recently treated for syphilis with rapid onset ascending numbness and weakness in his legs. Symptom onset around February 20. No prior history. Requires a cane now and unable to get up from seated position. Numbness started in feet and has progressed. Denies symptoms in arms or speech. LP showed elevated protein. No evidence of myelitis on MRI cervical or thoracic imgaing. On examine proprioreception is poor. He has ankle dorsiflexion weakness 4/5 and hip flexion weakness 4-/5 bilateral. Abesent ankle and knee jerks. 2+ at both biceps. Unable to stand from seated position. Unable to walk on tip toes. Sensation reduced to light touch in feet. 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 symptom onset / clinical history, MRI imaging, and recent LP. Recommend starting IVIG 400 mg/kg x5 days. Continue PT/OT. Neurology will continue to follow. Dr. Machado will be remotely covering the neurology service starting tomorrow. History of Present Illness Reason for Consultation: weakness/numbness- R/O Guillian barre Requesting Physician: Lois Woodward MD Attending Physician: Lois Woodward MD History of Present Illness Donnell is a 56 year old male with PMH back pain, numbness tingling hands, and legs, and recent +RPR. He was seen by ID and a LP was done in the ED. ID concerned he may have GB syndrome. He started having symptoms at the beginning of January 2022 had a herpes out break and was treated at [facility]. He did feel better but then started feeling sick again and went back to [facility] and had a more thorough group of labs and tested positive for syphilis. He started having progressive weakness started needing a cane to walk then a walker then unable to support his weight. He was also tested for HIV and was negative. 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 denies CP, SOB, abdominal pain, N, V swallowing issues. Allergies Allergy/AdvReac Type Severity Reaction Status Date / Time No Known Allergies Allergy Unverified 03/10/22 15:10 Home Medications Medication Instructions Recorded Confirmed Type ibuprofen 200 mg tablet (Advil) 200 mg PO UD PRN 03/10/22 03/10/22 History naproxen sodium 220 mg tablet 220 mg PO UD PRN 03/10/22 03/10/22 History (Aleve) Patient History Medical History Herpes simplex type 1 infection Social History Smoking Status: Never smoker Second Hand Exposure: No; Do You Dip or Chew Tobacco: No; Tobacco Cessation Education Requested by Patient: No Hx Alcohol Use: Yes Alcohol type: wine Hx Substance Use: No Preferred Language: Telugu Communication Ability: Effective Twister Doffer Required: No Beliefs That Will Affect Care: None marital status: Current Living Situation: Spouse How many Children do You have: 2 Other Information That Helps Us Care for You: No Feels Safe at Home: Yes Safety Concerns: Feels Safe At This Time Assistive Devices: Cane and Walker Review of Systems Review of Systems: All systems reviewed & are unremarkable except as noted in HPI & below Physical Exam Physical Exam: Physical Exam: Constitutional: appearance nourished, healthy and normal Ears, Nose, Mouth and Throat: mucous membranes moist, no injection and skin normal, eyes normal Cardiovascular: normal S-1 and S-2 and regular rate and rhythm Respiratory: clear to auscultation (CTA) and no rales, ronchi or wheeze Musculoskeletal: no peripheral edema and good distal pulses Skin: no stigmata of neurocutaneous disease noted and normal and intact Eyes: extraocular muscles intact (EOMI) and pupils equal, round and reactive to light (PERRL) NEUROLOGIC EXAMINATION: Mental status: Alert and interactive Oriented to full date and location Oriented to person Speech fluent with no evidence of aphasia Cranial Nerves smile eye brow raise Reflexes: a reflexia bilateral UE/LE Sensory: decreased sensation with light touch bilaterally to elbow and to mid castro, decreased proprioception bilateral GT Coordination: finger to nose slight dysmetric trying to use his tablet which he was hitting the wrong keys and normal types without looking at the keyboard Gait/Stance: Posture lying in bed Motor: Negative for pronator drift of out stretched arms with eyes closed. 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 C spine MRI-Degenerative changes as above resulting in up to mild canal stenosis. L spine MRI - Mild degenerative disc disease without significant stenosis. No enhancing lesions are seen. T spine MRI-here is no disc herniation, central canal stenosis, or neural foraminal narrowing seen throughout the thoracic region. No osseous abnormality is seen involving the thoracic spine. The thoracic cord is normal in morphology and signal intensity with no abnormal postcontrast enhancement. No epidural fluid collection is clearly identified.
--- NOTE | 2022-03-12 20:17 | Hospitalist Progress Note ---
Date of Service March 12, 2022 Assessment & Plan (1) Numbness and tingling of both legs: Plan: Possible (2) Numbness and tingling in both hands: Plan: Might be related to Lyme disease VS neurosyphillis vs Guillian [place] Syndrome CT head showed no acute intracranial abnormality MRI cervical showed degenerative changes as above resulting in up to mild canal stenosis. Lumbar MRI showed mild degenerative disc disease without significant stenosis. No enhancing lesions are seen. MRI thoracic showed thickening and enhancement of the epidural space posteriorly seen from T2 through T6. no associated mass effect and this likely represents prominent epidural fat and venous structures. LP done showed no Lyme detected Protein Elevated on CSF CSF VDRL pending Continue pain control with tramaol NSAID/ Tylenol Discussed with Spine orthopedic Dr. Gonzalez about the MRI results- All are benign. No Neuro compression of significance RPR and Lyme titer positive Neuro consult to eval for possible Guillain- [place]ove syndrome Continue physical therapy and occupational therapy ID recommended to continue IV Penicillin for neurosyphilis for 2 weeks Will start on IVIG x 5days for GBS Syphilis Patient requests for his medical information to be kept confidential and not to be disclosed to anybody without his permission Pt does not want us to mention the word syphilis in front of his RPR testing positive Patient directed to local [facility] for evaluation of positive syphilis test. Received 1 dose of IM Penicillin 2 weeks ago outpatient Continue IV penicillin ID on board recommended to continue IV penicillin for 2 weeks Spoke to infection control that contacted department of health - Department of health already reached at people pt had sexual contact with Continue encourage patient to discuss his positive syphilis with his that she can get testing and treated (if testing positive) Lyme disease Lyme IGG ab positive Pt said that he never treated for lyme disease in the past Western Blot pending Currently on Penicillin for Syphilis DVT px on Lovenox Code status Full code Admission and Anticipated Discharge Date Admission Date: March 12, 2022 Subjective Patient was seen and examined for follow-up of lower extremity numbness Pt was seating in chair when i entered the room He said that he continues to feel weak He said that before he was using a cane, but now he has to use a walker to move because of the weakness Denies any fever, palpitation, dizziness and SOB Review of Systems Review of Systems: All systems reviewed & are unremarkable except as noted in Subjective Physical Exam Physical Exam: General- No acute distress Head- atraumatic Eyes- PERRL, EOMI, ENT- oropharynx clear Neck- supple, no JVD Lungs- clear to auscultation Heart- regular rhythm; no murmur Abdomen- normal bowel sounds, soft, nontender Extremities- no calf tenderness, absent reflexes in B/L lower extremities Neuro- alert, oriented x 3; PERRL, EOMI; no facial palsy; no dysarthria Skin- warm & dry Results & Data Results & Data ([facility]) Vital Signs (Past 12 Hours) Vital Signs Temp Pulse Resp BP Pulse Ox 03/12/22 15:32 37.2 C 92 H 16 148/87 H 92
[2022-03-12] MEDS: IMMUN GLOBG(IGG)/MALT/IGA OV50 100 ML IV SCH (20:55)
[2022-03-12] MEDS: LIDOCAINE 5% 1 PATCH TD SCH (21:04)
[2022-03-12] MEDS: IMMUN GLOBG(IGG)/MALT/IGA OV50 200 ML IV SCH (23:06)
[2022-03-13] MEDS: IBUPROFEN 200 MG TAB PO PRN ×4 (01:34→20:54)
[2022-03-13] MEDS: KETOROLAC TROMETHAMINE 15 MG/ML VIAL IV PRN ×4 (01:34→20:54)
[2022-03-13] MEDS: PENICILLIN G POTASSIUM 4 MU in DEXTROSE 5% 100 ML IV SCH ×6 (01:49→21:49)
[2022-03-13] MEDS: traMADol HCL 50 MG TABLET PO PRN (03:07)
[2022-03-13] MEDS: ACETAMINOPHEN 325 MG TAB PO PRN (06:13)
[2022-03-13] MEDS: ENOXAPARIN INJ 40 MG/0.4 ML SYR SQ SCH (07:33)
--- NOTE | 2022-03-13 11:45 | Neurology Progress Note ---
Date of Service March 13, 2022 Assessment & Plan (1) Ataxia: Plan: 1. MRI c/t/l spine no evidence of severe compression or enhancement 2. LP - pending- protein CSF 81.1 3. would start IV IG 0.4 g per kg x 5 days- some improvement after 1st day 4. continue to monitor 5. fall precautions 6. consult respiratory for inspiratory monitoring q shift 7. PT/OT for further recommendations (2) Numbness and tingling in both hands: Plan: 1. decreased sensation to light cool touch (3) Numbness and tingling of both legs: Admission and Anticipated Discharge Date Admission Date: March 12, 2022 Supervising Physician Co-Signing Physician Notes I have seen and discussed above patient with Dr Lilian Machado, neurology. PT seen and examined via Ipad with claribel Anaya reviewed and discussed case with Dr Seals. GBS type illness in setting of syphilis. Pt feels improved post 1 tx IVIG. C/o mild dyspnea but able to count past 30 on 1 breath no accessory muscle use, no signs of autonomic dysfunction such and B/B incont or lightheadedness. Pt improved, mildly, monitor respiratory parameters continue IVIG, NCV as outpt MD Malcolm Tonia Jacobo is a 56 year old male with PMH back pain, numbness tingling hands, and legs, and recent +RPR. He was seen by ID and a LP was done in the ED. ID concerned he may have GB syndrome. He started having symptoms at the beginning of January 2022 had a herpes out break and was treated at [facility]. He did feel better but then started feeling sick again and went back to [facility] and had a more thorough group of labs and tested positive for syphilis. He started having progressive weakness started needing a cane to walk then a walker then unable to support his weight. He was also tested for HIV and was negative. 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 He thinks he is doing better today. his hands are not as clumpsy as yesterday and he can lift his legs off the bed with gravity. He does thinks his is a bit SOB with deep breaths. denies CP, SOB, abdominal pain, N, V swallowing issues. Review of Systems Review of Systems: All systems reviewed & are unremarkable except as noted in HPI & below Physical Exam Physical Exam: Physical Exam: Constitutional: appearance nourished, healthy and normal Ears, Nose, Mouth and Throat: mucous membranes moist, no injection and skin normal, eyes normal Cardiovascular: normal S-1 and S-2 and regular rate and rhythm Respiratory: clear to auscultation (CTA) and no rales, ronchi or wheeze Musculoskeletal: no peripheral edema and good distal pulses Skin: no stigmata of neurocutaneous disease noted and normal and intact Eyes: extraocular muscles intact (EOMI) and pupils equal, round and reactive to light (PERRL) NEUROLOGIC EXAMINATION: Mental status: Alert and interactive Oriented to full date and location Oriented to person Speech fluent with no evidence of aphasia Cranial Nerves smile eye brow raise Reflexes: a reflexia bilateral UE/LE at knee and ankle jerk Sensory: decreased sensation with light touch bilaterally to elbow and to mid castro, decreased proprioception bilateral GT R>L Coordination: rapid hand movements Gait/Stance: sitting bedside Motor: Negative for pronator drift of out stretched arms with eyes closed. Strength: hand emergency management director 4+/5 intrinsics 4+/5 biceps triceps 5/5 deltoids 4/5, hip flex 3/5, patellar flex ext 4/5 bilaterally plantar flex ext 4+/4 Results & Data ([facility]) Vital Signs (Past 12 Hours) Vital Signs Temp Pulse Resp BP Pulse Ox 03/13/22 07:12 36.5 C 76 16 153/86 H 95 03/13/22 01:28 36.9 C 85 18 145/89 H 94 03/13/22 01:10 36.8 C 80 18 144/83 H 94 03/13/22 00:40 36.7 C 82 18 142/88 H 92 03/13/22 00:10 36.8 C 77 18 149/87 H 94
[2022-03-13 13:58] LABS: Cryptococcal Antigen Not Detected (Not Detected); Source CSF
[2022-03-13] MEDS ORDERED: MAGNESIUM HYDROXIDE SUSP 30 ML UDC PO ONE (14:17)
[2022-03-13] MEDS ORDERED: POLYETHYLENE (MIRALAX) 17 GM PACK PO PRN (14:17)
--- NOTE | 2022-03-13 18:12 | Hospitalist Progress Note ---
Date of Service March 13, 2022 Assessment & Plan (1) Numbness and tingling of both legs: Plan: Possible GB syndrome (2) Numbness and tingling in both hands: Plan: Might be related to Lyme disease VS neurosyphillis vs Guillian [place] Syndrome CT head showed no acute intracranial abnormality MRI cervical showed degenerative changes as above resulting in up to mild canal stenosis. Lumbar MRI showed mild degenerative disc disease without significant stenosis. No enhancing lesions are seen. MRI thoracic showed thickening and enhancement of the epidural space posteriorly seen from T2 through T6. no associated mass effect and this likely represents prominent epidural fat and venous structures. LP done showed no Lyme detected Protein Elevated on CSF to 81 CSF VDRL pending RPR and Lyme titer positive-history of Lyme disease. IgM and Western blot pending Neuro consult to eval for possible Guillain- Spring syndrome Continue physical therapy and occupational therapy ID recommended to continue IV Penicillin for neurosyphilis for 2 weeks Will start on IVIG x 5days for GBS Clinically feeling a little better with improvement of numbness and tingling Chronic back pain Continue pain control with tramaol NSAID/ Tylenol Discussed with Spine orthopedic Dr. Gonzalez about the MRI results- All are benign. No Neuro compression of significance Will increase the dose of NSAID to improve pain Syphilis Patient requests for his medical information to be kept confidential and not to be disclosed to anybody without his permission Pt does not want us to mention the word syphilis in front of his RPR testing positive and VDRL test in the spinal fluid has been pending [facility] of positive syphilis test. Received 1 dose of IM Penicillin 2 weeks ago outpatient Continue IV penicillin ID on board recommended to continue IV penicillin for 2 weeks Spoke to infection control that contacted department of health - Department of health already reached at people pt had sexual contact with Continue encourage patient to discuss his positive syphilis with his that s he can get testing and treated (if testing positive) Lyme disease Lyme IGG ab positive Pt said that he never treated for lyme disease in the past Western Blot pending Currently on Penicillin for Syphilis DVT px on Lovenox Code status Full code Admission and Anticipated Discharge Date Admission Date: March 12, 2022 Subjective 03/13/2022 The patient was seen and examined in medical floor His numbness and tingling are improving with administration of intravenous gammaglobulin Denies any new symptoms Complains that pain is not well controlled at the back with current pain regimen Review of Systems Review of Systems: All systems reviewed and are unremarkable except as noted below Musculoskeletal: Back pain has been bothering Neurologic: ImprovingNumbness tingling and weakness Physical Exam Physical Exam: Sitting on a chair without any acute distress Constitutional: average body habitus; not ill appearing ENMT: external ear and nose normal, oropharynx normal Neck: trachea midline, no thyromegaly Respiratory: no respiratory distress Auscultation: lungs clear to auscultation bilaterally Cardiovascular: Rate/Rhythm: regular rate and regular rhythm; not tachycardic Heart Sounds: normal S1 and normal S2; no murmur Extremities: no edema Gastrointestinal (Abdomen): Inspection/Auscultation: normal bowel sounds; abdomen not distended Percussion/Palpation: abdomen soft; abdomen nontender Musculoskeletal: No acute arthritis in any joint Neurologic: Alert, awake and oriented x3. Remains generally weak, numbness in the extremities have been improving Results & Data Results & Data ([facility]) Vital Signs (Past 12 Hours) Vital Signs Temp Pulse Resp BP Pulse Ox 03/13/22 15:37 36.9 C 89 16 148/91 H 94 03/13/22 07:12 36.5 C 76 16 153/86 H 95 Medications Administered Current Inpatient Medications Acetaminophen (Acetaminophen 325 Mg Tab) 650 mg PO Q4H PRN PRN Reason: pain/fever Stop: 04/09/22 20:24 Last Admin: 03/13/22 06:13 Dose: 650 mg Documented by: Enoxaparin Sodium (Enoxaparin Inj 40 Mg/0.4 Ml Syr) 40 mg SQ QAM [facility] Stop: 04/10/22 08:59 Last Admin: 03/13/22 07:33 Dose: 40 mg Documented by: Penicillin G Potassium 4 mu/ (Dextrose) 108 mls @ 100 mls/hr IV Q4H [facility]; Protocol Stop: 03/21/22 00:00 Last Admin: 03/13/22 17:47 Dose: 100 mls/hr Documented by: Promethazine HCl 6.25 mg/ (Sodium Chloride) 50.25 mls @ 201 mls/hr IV Q6H PRN PRN Reason: Nausea And Vomiting Stop: 04/09/22 23:32 Last Infusion: 03/11/22 23:36 Dose: Infused Documented by: Immune Globulin (Octagam 10%) 200 mls @ 46.68 mls/hr IV DAILY@2100 [facility]; Protocol Stop: 03/17/22 01:18 Last Titration: 03/13/22 01:49 Dose: Infused Documented by: Immune Globulin (Octagam 10%) 100 mls @ 46.68 mls/hr IV DAILY@2000 [facility]; Protocol Stop: 03/16/22 22:09 Last Titration: 03/12/22 23:08 Dose: Infused Documented by: Ibuprofen (Ibuprofen 200 Mg Tab) 200 mg PO Q6H PRN PRN Reason: Mild Pain Stop: 04/09/22 20:24 Last Admin: 03/13/22 14:28 Dose: 200 mg Documented by: Ketorolac Tromethamine (Ketorolac Tromethamine 15 Mg/Ml Vial) 15 mg IV Q6H PRN PRN Reason: Pain Stop: 03/15/22 20:24 Last Admin: 03/13/22 14:27 Dose: 15 mg Documented by: Lidocaine (Lidocaine 5% 1 Patch) 1 patch TD [facility] Stop: 04/09/22 20:19 Last Admin: 03/12/22 21:04 Dose: 1 patch Documented by: Lorazepam (Lorazepam 2 Mg/1 Ml Vial) 0.25 mg IV Q4H PRN PRN Reason: Anxiety Stop: 04/09/22 20:24 Last Admin: 03/11/22 00:11 Dose: 0.25 mg Documented by: Lorazepam (Lorazepam 2 Mg/1 Ml Vial) 0.25 mg IV Q1H PRN PRN Reason: anxiety pre/during mri Stop: 04/09/22 20:24 Miscellaneous (Remove Lidoderm Patch) 1 ea N/A [facility] Stop: 04/10/22 08:59 Last Admin: 03/13/22 07:33 Dose: 1 ea Documented by: Polyethylene Glycol (Polyethylene (Miralax) 17 Gm Pack) 17 gm PO DAILY PRN PRN Reason: Constipation Stop: 04/12/22 14:16 Tramadol HCl (Tramadol Hcl 50 Mg Tablet) 25 - 50 mg PO Q4H PRN PRN Reason: Pain Stop: 04/10/22 04:31 Last Admin: 03/13/22 03:07 Dose: 50 mg Documented by:
[2022-03-13] MEDS: PANTOprazole 40 MG TAB PO SCH (18:42)
[2022-03-13] MEDS: IMMUN GLOBG(IGG)/MALT/IGA OV50 100 ML IV SCH (19:45)
[2022-03-13] MEDS: IMMUN GLOBG(IGG)/MALT/IGA OV50 200 ML IV SCH (21:13)
[2022-03-13] MEDS: LIDOCAINE 5% 1 PATCH TD SCH (21:50)
[2022-03-14] MEDS: PENICILLIN G POTASSIUM 4 MU in DEXTROSE 5% 100 ML IV SCH ×6 (02:01→23:30)
[2022-03-14] MEDS: IBUPROFEN 200 MG TAB PO PRN ×2 (03:11→09:56)
[2022-03-14] MEDS: KETOROLAC TROMETHAMINE 15 MG/ML VIAL IV PRN ×3 (03:11→18:06)
[2022-03-14] MEDS: traMADol HCL 50 MG TABLET PO PRN (04:24)
[2022-03-14] MEDS: ACETAMINOPHEN 325 MG TAB PO PRN ×2 (05:20→20:15)
[2022-03-14 08:12] LABS: 18KDIGG Band NON-REACTIVE; 23KDIGG Band NON-REACTIVE; 23KDIGM Band NON-REACTIVE; 28KDIGG Band NON-REACTIVE; 30KDIGG Band NON-REACTIVE; 39KDIGG Band NON-REACTIVE; 39KDIGM Band REACTIVE; 41KDIGG Band REACTIVE; 41KDIGM Band NON-REACTIVE; 45KDIGG Band NON-REACTIVE; 58KDIGG Band NON-REACTIVE; 66KDIGG Band NON-REACTIVE; 93KDIGG Band NON-REACTIVE; Lyme Antibodies, WB IgG NEGATIVE (NEGATIVE); Lyme Antibodies, WB IgM NEGATIVE (NEGATIVE)
[2022-03-14 08:30] LABS: Basophils # (auto) 0.04 K/uL (0-0.2); Basophils % (auto) 0.8 %; Eosinophils # (auto) 0.19 K/uL (0-0.5); Eosinophils % (auto) 3.8 %; Hematocrit (blood only) 42.9 % (42-52); Hemoglobin 15.2 g/dL (14.0-18.0); Immature Granulocytes # (auto) 0.01 K/uL (0.00-0.02); Immature Granulocytes % (auto) 0.2 %; Lymphocytes # (auto) 1.68 K/uL (1.2-3.4); Lymphocytes % (auto) 33.3 %; Mean Corpuscular Hemoglobin 32.9 pg (25-34); Mean Corpuscular Hgb Conc 35.4 g/dL (32-36); Mean Corpuscular Volume 92.9 fL (80-100); Monocytes # (auto) 0.53 K/uL (0.11-0.59); Monocytes % (auto) 10.5 %; Neutrophils # (auto) 2.59 K/uL (1.4-6.5); Neutrophils % (auto) 51.4 %; Platelet Count 180 K/uL (130-400); Red Blood Count 4.62 M/uL (4.7-6.1); White Blood Count 5.04 K/uL (4.8-10.8)
[2022-03-14 08:50] LABS: BUN Creatinine Ratio 18.7 (10-20); Calcium 9.2 mg/dl (8.5-10.1); Creatinine Clr Calc Pharmacy 99.5 ml/min; Est GFR (African American) 108.8 ml/min; Est GFR (Non-African American) 93.9 ml/min; Potassium 4.3 mmol/L (3.5-5.1)
[2022-03-14] MEDS: PANTOprazole 40 MG TAB PO SCH (09:43)
[2022-03-14] MEDS: ENOXAPARIN INJ 40 MG/0.4 ML SYR SQ SCH (09:43)
--- NOTE | 2022-03-14 11:59 | Progress Notes ---
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 He has received two doses of IVIG. After dose one, he felt somewhat better; after last night's dose he indicates that he may feel a little weaker in his proximal arms. He is having a little more difficulty standing from a chair or from the bed. He has no difficulty with chewing, swallowing. His respiratory parameters have been normal. His negative inspiratory force is 40. His vital capacity is 3.8. His lab work is notable for a pending HIV, Lyme titers, IgM is reactive. IgG is positive. There is no interpretation. HIV pending. OBJECTIVE: VITAL SIGNS: 152/95, 72, 16, 36.6, 95% sat on room air. GENERAL: The patient is awake and alert. Speech and language are normal. There is no nasality.There is no respiratory distress. there is no accessory muscle use. No facial weakness is noted NEUROLOGIC: The deltoids appeared to be 3+, biceps 4, triceps 4, rig mechanic strength is mildly reduced on the right. Iliopsoas is slightly more than antigravity (LLE is mildly stronger than right) Quads appeared to be about 4, TAs and gastrocs about 4 as well. The patient was nearly unable to stand with a walker. 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 CSF VDRL nonreactive. Await HIV. The patient reports mild increase in symptomatology. I see no respiratory compromise. pt monitoring strength, respiration carefull Continue IVIG with close neurologic/respiratory monitoring. Defer to Infectious Disease regarding interpretation of Lyme titer. Discussed getting physical therapy engaged. This encounter was completed with nursing and an iPad. I was in my home and the patient was at the hospital. We will follow with you. Job ID: [id number] [facility]
--- NOTE | 2022-03-14 16:46 | Hospitalist Progress Note ---
Date of Service March 14, 2022 Assessment & Plan (1) Numbness and tingling of both legs: Plan: Possible GB syndrome Sensory symptoms get better immediately following administration of IgG (2) Numbness and tingling in both hands: Plan: Might be related to Lyme disease VS neurosyphillis vs Guillian [place] Syndrome CT head showed no acute intracranial abnormality MRI cervical showed degenerative changes as above resulting in up to mild canal stenosis. Lumbar MRI showed mild degenerative disc disease without significant stenosis. No enhancing lesions are seen. MRI thoracic showed thickening and enhancement of the epidural space posteriorly seen from T2 through T6. no associated mass effect and this likely represents prominent epidural fat and venous structures. LP done showed no Lyme detected Protein Elevated on CSF to 81 CSF VDRL pending RPR and Lyme titer positive-history of Lyme disease. IgM and Western blot pending Neuro consult to eval for possible Guillain- Winston syndrome Continue physical therapy and occupational therapy ID recommended to continue IV Penicillin for neurosyphilis for 2 weeks Will start on IVIG x 5days for GBS Clinically feeling a little better with improvement of numbness and tingling Chronic back pain Continue pain control with tramaol NSAID/ Tylenol Discussed with Spine orthopedic Dr. Gonzalez about the MRI results- All are benign. No Neuro compression of significance Will increase the dose of NSAID to improve pain He uses higher doses of NSAID's at home to control pain Syphilis Patient requests for his medical information to be kept confidential and not to be disclosed to anybody without his permission Pt does not want us to mention the word syphilis in front of his RPR testing positive and VDRL test in the spinal fluid has been pending [facility] positive syphilis test. Received 1 dose of IM Penicillin 2 weeks ago outpatient Continue IV penicillin ID on board recommended to continue IV penicillin for 2 weeks Spoke to infection control that contacted department of health - Department of health already reached at people pt had sexual contact with Continue encourage patient to discuss his positive syphilis with his that she can get testing and treated (if testing positive) CSF VDRL is nonreactive Lyme disease Lyme IGG ab positive Pt said that he never treated for lyme disease in the past Western Blot pending Currently on Penicillin for Syphilis CSF Lyme disease IgG antibody 41 kDA band is reactive-Lyme disease IgG antibody Western blot is negative CSF Lyme disease IgM antibody 39 kDA band is reactive-Lyme disease IgM antibody Western blot is negative We will discuss with ID for any significance of Lyme disease IgM antibody 39 KDA band to be reactive DVT px on Lovenox Code status Full code Admission and Anticipated Discharge Date Admission Date: March 12, 2022 Subjective 03/13/2022 The patient was seen and examined in medical floor His numbness and tingling are improving with administration of intravenous gammaglobulin Denies any new symptoms Complains that pain is not well controlled at the back with current pain regimen 03/14/2022 The patient was seen and examined in medical floor He has had a fall yesterday without any significant injury-sled down on the floor He complains to have some weakness involving the shoulder girdle Numbness and tingling remains same Review of Systems Review of Systems: All systems reviewed and are unremarkable except as noted below Musculoskeletal: Back pain has been bothering Neurologic: ImprovingNumbness tingling and weakness Physical Exam Physical Exam: Sitting on a chair without any acute distress Constitutional: average body habitus; not ill appearing ENMT: external ear and nose normal, oropharynx normal Neck: trachea midline, no thyromegaly Respiratory: no respiratory distress Auscultation: lungs clear to auscultation bilaterally Cardiovascular: Rate/Rhythm: regular rate and regular rhythm; not tachycardic Heart Sounds: normal S1 and normal S2; no murmur Extremities: no edema Gastrointestinal (Abdomen): Inspection/Auscultation: normal bowel sounds; abdo men not distended Percussion/Palpation: abdomen soft; abdomen nontender Musculoskeletal: No acute arthritis involving any joint Neurologic: Alert, awake and oriented x3 Psychiatric: A+Ox3, euthymic affect Lymphatic: no cervical or axillary lymphadenopathy Results & Data Results & Data ([facility]) Vital Signs (Past 12 Hours) Vital Signs Temp Pulse Resp BP Pulse Ox 03/14/22 14:10 37.0 C 79 16 136/76 95 03/14/22 07:49 36.6 C 72 16 152/95 H 95 Laboratory Results Short CBC 03/14/22 Range/Units 07:54 WBC 5.04 (4.8-10.8) K/uL Hgb 15.2 (14.0-18.0) g/dL Hct 42.9 (42-52) % Plt Count 180 (130-400) K/uL BMP 03/14/22 07:54 Sodium 134 L Potassium 4.3 Chloride 104 Carbon Dioxide 25 BUN 17 Creatinine 0.91 Glucose 113 H Calcium 9.2 Medications Administered Current Inpatient Medications Acetaminophen (Acetaminophen 325 Mg Tab) 650 mg PO Q4H PRN PRN Reason: pain/fever Stop: 04/09/22 20:24 Last Admin: 03/14/22 05:20 Dose: 650 mg Documented by: Enoxaparin Sodium (Enoxaparin Inj 40 Mg/0.4 Ml Syr) 40 mg SQ QAM [facility] Stop: 04/10/22 08:59 Last Admin: 03/14/22 09:43 Dose: 40 mg Documented by: Penicillin G Potassium 4 mu/ (Dextrose) 108 mls @ 100 mls/hr IV Q4H [facility]; Protocol Stop: 03/21/22 00:00 Last Infusion: 03/14/22 14:43 Dose: Infused Documented by: Promethazine HCl 6.25 mg/ (Sodium Chloride) 50.25 mls @ 201 mls/hr IV Q6H PRN PRN Reason: Nausea And Vomiting Stop: 04/09/22 23:32 Last Infusion: 03/11/22 23:36 Dose: Infused Documented by: Immune Globulin (Octagam 10%) 200 mls @ 46.68 mls/hr IV DAILY@2100 [facility]; Protocol Stop: 03/17/22 01:18 Last Titration: 03/13/22 23:28 Dose: Infused Documented by: Immune Globulin (Octagam 10%) 100 mls @ 46.68 mls/hr IV DAILY@2000 [facility]; Protocol Stop: 03/16/22 22:09 Last Titration: 03/13/22 21:08 Dose: Infused Documented by: Ibuprofen (Ibuprofen 600 Mg Tab) 600 mg PO Q6H PRN PRN Reason: Mild Pain Stop: 04/09/22 20:24 Ketorolac Tromethamine (Ketorolac Tromethamine 15 Mg/Ml Vial) 15 mg IV Q6H PRN PRN Reason: Pain Stop: 03/15/22 20:24 Last Admin: 03/14/22 09:56 Dose: 15 mg Documented by: Lidocaine (Lidocaine 5% 1 Patch) 1 patch TD [facility] Stop: 04/09/22 20:19 Last Admin: 03/13/22 21:50 Dose: 1 patch Documented by: Lorazepam (Lorazepam 2 Mg/1 Ml Vial) 0.25 mg IV Q4H PRN PRN Reason: Anxiety Stop: 04/09/22 20:24 Last Admin: 03/11/22 00:11 Dose: 0.25 mg Documented by: Lorazepam (Lorazepam 2 Mg/1 Ml Vial) 0.25 mg IV Q1H PRN PRN Reason: anxiety pre/during mri Stop: 04/09/22 20:24 Miscellaneous (Remove Lidoderm Patch) 1 ea N/A [facility] Stop: 04/10/22 08:59 Last Admin: 03/14/22 09:43 Dose: 1 ea Documented by: Pantoprazole Sodium (Pantoprazole 40 Mg Tab) 40 mg PO [facility] Stop: 03/17/22 18:14 Last Admin: 03/14/22 09:43 Dose: 40 mg Documented by: Polyethylene Glycol (Polyethylene (Miralax) 17 Gm Pack) 17 gm PO DAILY PRN PRN Reason: Constipation Stop: 04/12/22 14:16 Tramadol HCl (Tramadol Hcl 50 Mg Tablet) 25 - 50 mg PO Q4H PRN PRN Reason: Pain Stop: 04/10/22 04:31 Last Admin: 03/14/22 04:24 Dose: 50 mg Documented by:
[2022-03-14] MEDS: IBUPROFEN 600 MG TAB PO PRN (18:06)
[2022-03-14] MEDS: IMMUN GLOBG(IGG)/MALT/IGA OV50 100 ML IV SCH (20:10)
[2022-03-14] MEDS: LIDOCAINE 5% 1 PATCH TD SCH (20:57)
[2022-03-14] MEDS: IMMUN GLOBG(IGG)/MALT/IGA OV50 200 ML IV SCH (21:50)
[2022-03-15] MEDS: KETOROLAC TROMETHAMINE 15 MG/ML VIAL IV PRN ×3 (00:42→13:58)
[2022-03-15] MEDS: IBUPROFEN 600 MG TAB PO PRN ×4 (00:43→21:27)
[2022-03-15] MEDS: ACETAMINOPHEN 325 MG TAB PO PRN ×4 (02:37→23:09)
[2022-03-15] MEDS: PENICILLIN G POTASSIUM 4 MU in DEXTROSE 5% 100 ML IV SCH ×6 (03:17→22:00)
[2022-03-15] MEDS: LORazepam 2 MG/1 ML VIAL IV PRN (04:32)
[2022-03-15] MEDS: ENOXAPARIN INJ 40 MG/0.4 ML SYR SQ SCH (08:14)
[2022-03-15] MEDS: PANTOprazole 40 MG TAB PO SCH (08:14)
--- NOTE | 2022-03-15 14:03 | Progress Notes ---
DATE OF SERVICE: 03/15/2022 This video was telemedicine via an iPad with the patient's nurse, Brooks. The patient has no new complaints per se. I believe based on a lengthy discussion that he is about t he same as he was yesterday. The subtle difference is being, yesterday, he required the assistance o f 2 to stand with a walker and today he required the assistance of 1 to stand with a walker and to to e walk. He has not had any shortness of breath per se. No dysarthria, dysphagia, double vision, or difficulty with eye closure. Tingling may be about the same or mildly improved. There is no inconti nence of bowel or bladder. His lab data remains unchanged. HIV is pending. His respiratory paramet ers, most recently, his vital capacity was 4.4, respiratory mechanics excellent, NIF greater than 40. He was able to count to 35 on one breath and was not dyspneic at rest. No accessory muscle use was noted. OBJECTIVE: On exam, his extraocular motility was normal. There is normal facial symmetry, normal ey e closure. No neck flexor weakness. No jaw opening weakness. Upper extremities deltoids are about 3+, biceps is about 4, triceps about 4, wrist extension is about 4, technical mgr 4+ to 4. Iliopsoas is 3+, qu ads about 3, TA is 4, gastroc 4. IMPRESSION AND PLAN: Acute inflammatory demyelinating polyneuropathy, stable, status post courses of IVIG. No evidence of respiratory compromise. Continue bedside physical therapy. I believe the pat ient will need inpatient rehabilitation. Regarding the Lyme titer, recommend discussion with infectious disease for further interpretation. T his may change antibiotic coverage. HIV pending. We will follow with you. Job ID: [id number]
--- NOTE | 2022-03-15 14:59 | Hospitalist Progress Note ---
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 Lumbar MRI showed mild degenerative disc disease without significant stenosis. No enhancing lesions are seen. MRI thoracic showed thickening and enhancement of the epidural space posteriorly seen from T2 through T6. no associated mass effect and this likely represents prominent epidural fat and venous structures. LP done showed no Lyme detected Protein Elevated on CSF to 81 CSF VDRL pending RPR and Lyme titer positive-history of Lyme disease. IgM and Western blot pending Neuro consult to eval for possible Guillain- [place] syndrome Continue physical therapy and occupational therapy ID recommended to continue IV Penicillin for neurosyphilis for 2 weeks Will start on IVIG x 5days for GBS Clinically feeling a little better with improvement of numbness and tingling Chronic back pain Continue pain control with tramaol NSAID/ Tylenol Discussed with Spine orthopedic Dr. Gonzalez about the MRI results- All are benign. No Neuro compression of significance Will increase the dose of NSAID to improve pain He uses higher doses of NSAID's at home to control pain Ibuprofen has been increased to 600 mg 3 times daily as needed Syphilis Patient requests for his medical information to be kept confidential and not to be disclosed to anybody without his permission Pt does not want us to mention the word syphilis in front of his RPR testing positive and VDRL test in the spinal fluid has been pending [facility] positive [facility] test. Received 1 dose of IM Penicillin 2 weeks ago outpatient Continue IV penicillin ID on board recommended to continue IV penicillin for 2 weeks Spoke to infection control that contacted department of health - Department of health already reached at people pt had sexual contact with Continue encourage patient to discuss his positive syphilis with his that she can get testing and treated (if testing positive) CSF VDRL is nonreactive Lyme disease Lyme IGG ab positive Pt said that he never treated for lyme disease in the past Western Blot pending Currently on Penicillin for Syphilis CSF Lyme disease IgG antibody 41 kDA band is reactive-Lyme disease IgG antibody Western blot is negative CSF Lyme disease IgM antibody 39 kDA band is reactive-Lyme disease IgM antibody Western blot is negative We will discuss with ID for any significance of Lyme disease IgM antibody 39 KDA band to be reactive Reviewed up-to-date and do not feel like criteria for active Lyme disease given the findings but will discuss with ID tomorrow DVT px on Lovenox Code status Full code Admission and Anticipated Discharge Date Admission Date: March 12, 2022 Subjective 03/13/2022 The patient was seen and examined in medical floor His numbness and tingling are improving with administration of intravenous gammaglobulin Denies any new symptoms Complains that pain is not well controlled at the back with current pain regimen 03/14/2022 The patient was seen and examined in medical floor He has had a fall yesterday without any significant injury-sled down on the floor He complains to have some weakness involving the shoulder girdle Numbness and tingling remains same 03/15/2022 The patient was seen and examined in medical floor He complains to have weakness involving the bilateral shoulder girdle and feels that breathing is not yet any better His numbness and tingling remains stable No new symptoms Review of Systems Review of Systems: All systems reviewed and are unremarkable except as noted below Musculoskeletal: Back pain has been bothering Neurologic: ImprovingNumbness tingling and weakness Physical Exam Physical Exam: Sitting on a chair without any acute distress Constitutional: average body habitus; not ill appearing ENMT: external ear and nose normal, oropharynx normal Neck: trachea midline, no thyromegaly Respiratory: no respiratory distress Auscultation: lungs clear to auscultation bilaterally Cardiovascular: Rate/Rhythm: regular rate and regular rhythm; not tachycardic Heart Sounds: normal S1 and normal S2; no murmur Extremities: no edema Gastrointestinal (Abdomen): Inspection/Auscultation: normal bowel sounds; abdomen not distended Percussion/Palpation: abdomen soft; abdomen nontender Neurologic: Alert awake and oriented x3. Questionable sensory impairment in the extremities. No motor deficit in shoulders Psychiatric: A+Ox3, euthymic affect Lymphatic: no cervical or axillary lymphadenopathy Results & Data Results & Data ([facility]) Vital Signs (Past 12 Hours) Vital Signs Temp Pulse Resp BP Pulse Ox 03/15/22 06:53 36.5 C 61 14 140/91 94 Medications Administered Current Inpatient Medications Acetaminophen (Acetaminophen 325 Mg Tab) 650 mg PO Q4H PRN PRN Reason: pain/fever Stop: 04/09/22 20:24 Last Admin: 03/15/22 08:25 Dose: 650 mg Documented by: Enoxaparin Sodium (Enoxaparin Inj 40 Mg/0.4 Ml Syr) 40 mg SQ QAM [facility] Stop: 04/10/22 08:59 Last Admin: 03/15/22 08:14 Dose: 40 mg Documented by: Penicillin G Potassium 4 mu/ (Dextrose) 108 mls @ 100 mls/hr IV Q4H [facility]; Protocol Stop: 03/21/22 00:00 Last Admin: 03/15/22 14:02 Dose: 100 mls/hr Documented by: Promethazine HCl 6.25 mg/ (Sodium Chloride) 50.25 mls @ 201 mls/hr IV Q6H PRN PRN Reason: Nausea And Vomiting Stop: 04/09/22 23:32 Last Infusion: 03/11/22 23:36 Dose: Infused Documented by: Immune Globulin (Octagam 10%) 200 mls @ 46.68 mls/hr IV DAILY@2100 [facility]; Protocol Stop: 03/17/22 01:18 Last Titration: 03/15/22 00:15 Dose: Infused Documented by: Immune Globulin (Octagam 10%) 100 mls @ 46.68 mls/hr IV DAILY@2000 [facility]; Protocol Stop: 03/16/22 22:09 Last Titration: 03/14/22 21:56 Dose: Infused Documented by: Ibuprofen (Ibuprofen 600 Mg Tab) 600 mg PO Q6H PRN PRN Reason: Mild Pain Stop: 04/09/22 20:24 Last Admin: 03/15/22 13:59 Dose: 600 mg Documented by: Ketorolac Tromethamine (Ketorolac Tromethamine 15 Mg/Ml Vial) 15 mg IV Q6H PRN PRN Reason: Pain Stop: 03/15/22 20:24 Last Admin: 03/15/22 13:58 Dose: 15 mg Documented by: Lidocaine (Lidocaine 5% 1 Patch) 1 patch TD [facility] Stop: 04/09/22 20:19 Last Admin: 03/14/22 20:57 Dose: 1 patch Documented by: Lorazepam (Lorazepam 2 Mg/1 Ml Vial) 0.25 mg IV Q4H PRN PRN Reason: Anxiety Stop: 04/09/22 20:24 Last Admin: 03/15/22 04:32 Dose: 0.25 mg Documented by: Lorazepam (Lorazepam 2 Mg/1 Ml Vial) 0.25 mg IV Q1H PRN PRN Reason: anxiety pre/during mri Stop: 04/09/22 20:24 Miscellaneous (Remove Lidoderm Patch) 1 ea N/A [facility] Stop: 04/10/22 08:59 Last Admin: 03/15/22 08:14 Dose: 1 ea Documented by: Pantoprazole Sodium (Pantoprazole 40 Mg Tab) 40 mg PO [facility] Stop: 03/17/22 18:14 Last Admin: 03/15/22 08:14 Dose: 40 mg Documented by: Polyethylene Glycol (Polyethylene (Miralax) 17 Gm Pack) 17 gm PO DAILY PRN PRN Reason: Constipation Stop: 04/12/22 14:16 Tramadol HCl (Tramadol Hcl 50 Mg Tablet) 25 - 50 mg PO Q4H PRN PRN Reason: Pain Stop: 04/10/22 04:31 Last Admin: 03/14/22 04:24 Dose: 50 mg Documented by:
[2022-03-15] MEDS: IMMUN GLOBG(IGG)/MALT/IGA OV50 100 ML IV SCH (19:54)
[2022-03-15] MEDS: IMMUN GLOBG(IGG)/MALT/IGA OV50 200 ML IV SCH (21:21)
[2022-03-15] MEDS: LIDOCAINE 5% 1 PATCH TD SCH (21:28)
[2022-03-15] MEDS: traMADol HCL 50 MG TABLET PO PRN (23:42)
[2022-03-16] MEDS ORDERED: oxyCODONE HCL IR 5 MG TAB (IMMEDIATE RELEASE) PO STA (00:47)
[2022-03-16] MEDS: PENICILLIN G POTASSIUM 4 MU in DEXTROSE 5% 100 ML IV SCH ×6 (01:55→22:06)
[2022-03-16] MEDS: traMADol HCL 50 MG TABLET PO PRN ×4 (04:21→23:15)
[2022-03-16] MEDS: IBUPROFEN 600 MG TAB PO PRN ×3 (04:22→19:58)
[2022-03-16] MEDS: ACETAMINOPHEN 325 MG TAB PO PRN ×3 (07:07→22:45)
[2022-03-16 08:37] LABS: Basophils # (auto) 0.03 K/uL (0-0.2); Basophils % (auto) 0.6 %; Eosinophils # (auto) 0.26 K/uL (0-0.5); Hematocrit (blood only) 44.2 % (42-52); Hemoglobin 15.8 g/dL (14.0-18.0); Immature Granulocytes # (auto) 0.01 K/uL (0.00-0.02); Immature Granulocytes % (auto) 0.2 %; Lymphocytes # (auto) 2.19 K/uL (1.2-3.4); Lymphocytes % (auto) 42.4 %; Mean Corpuscular Hemoglobin 32.8 pg (25-34); Mean Corpuscular Hgb Conc 35.7 g/dL (32-36); Mean Corpuscular Volume 91.7 fL (80-100); Mean Platelet Volume 8.7 fL (7.4-10.4); Monocytes # (auto) 0.64 K/uL (0.11-0.59); Monocytes % (auto) 12.4 %; Neutrophils # (auto) 2.04 K/uL (1.4-6.5); Neutrophils % (auto) 39.4 %; Platelet Count 172 K/uL (130-400); RDW Standard Deviation 46.7 fL (36.4-46.3); Red Blood Count 4.82 M/uL (4.7-6.1); White Blood Count 5.17 K/uL (4.8-10.8)
[2022-03-16 08:55] LABS: Albumin Globulin Ratio 0.8 (0.9-2); Albumin Level 3.9 gm/dl (3.4-5.0); BUN Creatinine Ratio 19.6 (10-20); Bilirubin,Total 0.6 mg/dl (0.2-1.0); Calcium 9.4 mg/dl (8.5-10.1); Creatinine Clr Calc Pharmacy 98.4 ml/min; Est GFR (African American) 107.4 ml/min; Est GFR (Non-African American) 92.6 ml/min; Potassium 4.2 mmol/L (3.5-5.1); Total Protein 8.9 gm/dl (6.0-8.3)
[2022-03-16] MEDS: PANTOprazole 40 MG TAB PO SCH (09:04)
[2022-03-16] MEDS: PROMETHAZINE HCL 6.25 MG in SODIUM CHLORIDE 0.9% 50 ML IV PRN (10:07)
[2022-03-16] MEDS: ENOXAPARIN INJ 40 MG/0.4 ML SYR SQ SCH (10:59)
--- NOTE | 2022-03-16 14:45 | Neurology Progress Note ---
Date of Service March 16, 2022 Assessment & Plan (1) Ataxia: Plan: 1. MRI c/t/l spine no evidence of severe compression or enhancement 2. LP - protein CSF 81.1 3. would start IV IG 0.4 g per kg x 5 days- some improvement after 1st day- tonight treatment 5 4. continue to monitor 5. fall precautions 6. consult respiratory for inspiratory monitoring q shift- fluctuating results 7. PT/OT for further recommendations- transfer to [facility] once stable 8. EMG as outpatient as soon as possible once in [facility] 9. results of lyme titer was sent to ID in [place] will wait for results (2) Numbness and tingling in both hands: Plan: improving (3) Numbness and tingling of both legs: Plan: improving Admission and Anticipated Discharge Date Admission Date: March 12, 2022 Supervising Physician Co-Signing Physician Notes I have seen and discussed above patient with Dr Lilian Machado, neurology. PT seen and examined. Appears unchanged, but not improved. Tonight will be day 5 of IVIG, if stable can transfer to rehab. would continue to monitor resp parameters and DVT prophylaxis. Presumptive dx AIDP/syphilis will depend on coming weeks, stability, etc. ID yet to comment officially re Lyme results.Await HIV. NCV EMG with Dr Bozena cotto while pt at rehab. MD Malcolm Tonia Jacobo is a 56 year old male with PMH back pain, numbness tingling hands, and legs, and recent +RPR. He was seen by ID and a LP was done in the ED. ID concerned he may have GB syndrome. He started having symptoms at the beginning of January 2022 had a herpes out break and was treated at [facility]. He did feel better but then started feeling sick again and went back to [facility] and had a more thorough group of labs and tested positive for syphilis. He started having progressive weakness started needing a cane to walk then a walker then unable to support his weight. He was also tested for HIV and was negative. 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 He feels he is having up and down days. Tonight will be the 5th IVIG which he thinks has help some but not back to baseline. denies CP, SOB, abdominal pain, N, V swallowing issues. Review of Systems Review of Systems: All systems reviewed & are unremarkable except as noted in HPI & below Physical Exam Physical Exam: Physical Exam: Constitutional: appearance nourished, healthy and normal Ears, Nose, Mouth and Throat: mucous membranes moist, no injection and skin normal, eyes normal Cardiovascular: normal S-1 and S-2 and regular rate and rhythm Respiratory: clear to auscultation (CTA) and no rales, ronchi or wheeze Musculoskeletal: no peripheral edema , flex ext of neck some pain but no rigidity Skin: no stigmata of neurocutaneous disease noted and normal and intact Eyes: extraocular muscles intact (EOMI) NEUROLOGIC EXAMINATION: Mental status: Alert and interactive Oriented to full date and location Oriented to person Speech fluent with no evidence of aphasia Cranial Nerves smile eye brow raise Reflexes: a reflexic bilateral UE/LE at knee and ankle jerk Sensory: decreased sensation with light touch bilaterally to elbow and to mid castro, proprioception intact bilaterally but touching both toes he is having a hard time identifying the toes being touched, ligt touch and cool touch trunk intact. some tenderness with palpation of shoulder muscles Coordination: difficulty with lifting legs off bed using hands to help with lifting and getting himself into position Gait/Stance: sitting bedside Strength: hand remarketing rep 5/5 intrinsics 5/5 biceps triceps 5/5 deltoids 4/5, hip flex 2/5 bilaterally patellar ext 5/5 flex 4/5 bilaterally plantar flex ext 4+/4 leg lift off bed 2/5 Results & Data ([facility]) Vital Signs (Past 12 Hours) Vital Signs Temp Pulse Resp BP Pulse Ox 03/16/22 07:38 36.5 C 69 18 158/90 H 94 Laboratory Results Abnormal lab results 03/16/22 03/16/22 Range/Units 08:18 08:18 RDW Std Deviation 46.7 H (36.4-46.3) fL Lyman # (Auto) 0.64 H (0.11-0.59) K/uL Sodium 134 L (136-145) mmol/L Glucose 105 H (70-99(Fasting)) mg/dl Total Protein 8.9 H (6.0-8.3) gm/dl Globulin 5.0 H (2.5-4.0) gm/dl Albumin/Globulin Ratio 0.8 L (0.9-2) Diagnostic Findings no new imaging
--- NOTE | 2022-03-16 17:51 | Hospitalist Progress Note ---
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 Lumbar MRI showed mild degenerative disc disease without significant stenosis. No enhancing lesions are seen. MRI thoracic showed thickening and enhancement of the epidural space posteriorly seen from T2 through T6. no associated mass effect and this likely represents prominent epidural fat and venous structures. LP done showed no Lyme detected Protein Elevated on CSF to 81 CSF VDRL pending RPR and Lyme titer positive-history of Lyme disease. IgM and Western blot pending Neuro consult to eval for possible Guillain- [place] syndrome Continue physical therapy and occupational therapy ID recommended to continue IV Penicillin for neurosyphilis for 2 weeks Will start on IVIG x 5days for GBS Clinically feeling a little better with improvement of numbness and tingling Improved Proximal muscle weakness Pelvic girdle seems to be weaker than shoulder guarding Will have EMG as an outpatient Ataxic gait Ongoing physical therapy [facility] Chronic back pain Continue pain control with tramaol NSAID/ Tylenol Discussed with Spine orthopedic Dr. Gonzalez about the MRI results- All are benign. No Neuro compression of significance Will increase the dose of NSAID to improve pain He uses higher doses of NSAID's at home to control pain Ibuprofen has been increased to 600 mg 3 times daily as needed Syphilis Patient requests for his medical information to be kept confidential and not to be disclosed to anybody without his permission Pt does not want us to mention the word syphilis in front of his RPR testing positive and VDRL test in the spinal fluid has been pending Patient [facility] of positive syphilis test. Received 1 dose of IM Penicillin 2 weeks ago outpatient Continue IV penicillin ID on board recommended to continue IV penicillin for 2 weeks Spoke to infection control that contacted department of health - Department of health already reached at people pt had sexual contact with Continue encourage patient to discuss his positive syphilis with his that she can get testing and treated (if testing positive) CSF VDRL is nonreactive Discussed with the ID in [place] and will need to finish 2 weeks course of short acting penicillin as advised Lyme disease Lyme IGG ab positive Pt said that he never treated for lyme disease in the past Western Blot pending Currently on Penicillin for Syphilis CSF Lyme disease IgG antibody 41 kDA band is reactive-Lyme disease IgG antibody Western blot is negative CSF Lyme disease IgM antibody 39 kDA band is reactive-Lyme disease IgM antibody Western blot is negative We will discuss with ID for any significance of Lyme disease IgM antibody 39 KDA band to be reactive Reviewed up-to-date and do not feel like criteria for active Lyme disease given the findings but will discuss with ID tomorrow Discussed with the ID and the patient does not have any active Lyme disease DVT px on Lovenox Code status Full code Admission and Anticipated Discharge Date Admission Date: March 12, 2022 Subjective 03/13/2022 The patient was seen and examined in medical floor His numbness and tingling are improving with administration of intravenous gammaglobulin Denies any new symptoms Complains that pain is not well controlled at the back with current pain regimen 03/14/2022 The patient was seen and examined in medical floor He has had a fall yesterday without any significant injury-sled down on the floor He complains to have some weakness involving the shoulder girdle Numbness and tingling remains same 03/15/2022 The patient was seen and examined in medical floor He complains to have weakness involving the bilateral shoulder girdle and feels that breathing is not yet any better His numbness and tingling remains stable No new symptoms 03/16/2022 The patient was seen and examined in medical floor He remains weak and being weaker in pelvic girdle than in shoulder girdle His numbness and tingling have improved No neurological symptoms except weakness in the proximal musculatures Review of Systems Review of Systems: All systems reviewed and are unremarkable except as noted below Musculoskeletal: Back pain has been bothering Neurologic: ImprovingNumbness tingling and weakness Physical Exam Physical Exam: Sitting on a chair without any acute distress Constitutional: average body habitus; not ill appearing ENMT: external ear and nose normal, oropharynx normal Neck: trachea midline, no thyromegaly Respiratory: no respiratory distress Auscultation: lungs clear to auscultation bilaterally Cardiovascular: Rate/Rhythm: regular rate and regular rhythm; not tachycardic Heart Sounds: normal S1 and normal S2; no murmur Extremities: no edema Gastrointestinal (Abdomen): Inspection/Auscultation: normal bowel sounds; abdomen not distended Percussion/Palpation: abdomen soft; abdomen nontender Musculoskeletal: No acute arthritis in any joint Neurologic: Alert awake and oriented x3. No sensory impairment but has proximal muscle weakness more in the pelvic girdle than shoulder girdle Psychiatric: A+Ox3, euthymic affect Lymphatic: no cervical or axillary lymphadenopathy Results & Data Results & Data ([facility]) Vital Signs (Past 12 Hours) Vital Signs Temp Pulse Resp BP Pulse Ox 03/16/22 16:39 36.4 C L 77 18 156/95 H 94 03/16/22 07:38 36.5 C 69 18 158/90 H 94 Laboratory Results Short CBC 03/16/22 Range/Units 08:18 WBC 5.17 (4.8-10.8) K/uL Hgb 15.8 (14.0-18.0) g/dL Hct 44.2 (42-52) % Plt Count 172 (130-400) K/uL BMP 03/16/22 08:18 Sodium 134 L Potassium 4.2 Chloride 104 Carbon Dioxide 25 BUN 18 Creatinine 0.92 Glucose 105 H Calcium 9.4 Liver Function 03/16/22 Range/Units 08:18 Total Bilirubin 0.6 (0.2-1.0) mg/dl AST 33 (13-39) U/L ALT 37 (7-52) U/L Alkaline Phosphatase 53 (34-104) U/L Albumin 3.9 (3.4-5.0) gm/dl Medications Administered Current Inpatient Medications Acetaminophen (Acetaminophen 325 Mg Tab) 650 mg PO Q4H PRN PRN Reason: pain/fever Stop: 04/09/22 20:24 Last Admin: 03/16/22 17:00 Dose: 650 mg Documented by: Enoxaparin Sodium (Enoxaparin Inj 40 Mg/0.4 Ml Syr) 40 mg SQ QAM [facility] Stop: 04/10/22 08:59 Last Admin: 03/16/22 10:59 Dose: 40 mg Documented by: Penicillin G Potassium 4 mu/ (Dextrose) 108 mls @ 100 mls/hr IV Q4H [facility]; Protocol Stop: 03/21/22 00:00 Last Infusion: 03/16/22 16:19 Dose: Infused Documented by: Promethazine HCl 6.25 mg/ (Sodium Chloride) 50.25 mls @ 201 mls/hr IV Q6H PRN PRN Reason: Nausea And Vomiting Stop: 04/09/22 23:32 Last Infusion: 03/16/22 10:32 Dose: Infused Documented by: Immune Globulin (Octagam 10%) 200 mls @ 46.68 mls/hr IV DAILY@2100 [facility]; Protocol Stop: 03/17/22 01:18 Last Titration: 03/15/22 23:35 Dose: Infused Documented by: Immune Globulin (Octagam 10%) 100 mls @ 46.68 mls/hr IV DAILY@2000 [facility]; Protocol Stop: 03/16/22 22:09 Last Titration: 03/15/22 21:19 Dose: Infused Documented by: Ibuprofen (Ibuprofen 600 Mg Tab) 600 mg PO Q6H PRN PRN Reason: Mild Pain Stop: 04/09/22 20:24 Last Admin: 03/16/22 13:39 Dose: 600 mg Documented by: Lidocaine (Lidocaine 5% 1 Patch) 1 patch TD [facility] Stop: 04/09/22 20:19 Last Admin: 03/15/22 21:28 Dose: 1 patch Documented by: Lorazepam (Lorazepam 2 Mg/1 Ml Vial) 0.25 mg IV Q4H PRN PRN Reason: Anxiety Stop: 04/09/22 20:24 Last Admin: 03/15/22 04:32 Dose: 0.25 mg Documented by: Lorazepam (Lorazepam 2 Mg/1 Ml Vial) 0.25 mg IV Q1H PRN PRN Reason: anxiety pre/during mri Stop: 04/09/22 20:24 Miscellaneous (Remove Lidoderm Patch) 1 ea N/A [facility] Stop: 04/10/22 08:59 Last Admin: 03/16/22 09:05 Dose: 1 ea Documented by: Pantoprazole Sodium (Pantoprazole 40 Mg Tab) 40 mg PO [facility] Stop: 03/17/22 18:14 Last Admin: 03/16/22 09:04 Dose: 40 mg Documented by: Polyethylene Glycol (Polyethylene (Miralax) 17 Gm Pack) 17 gm PO DAILY PRN PRN Reason: Constipation Stop: 04/12/22 14:16 Tramadol HCl (Tramadol Hcl 50 Mg Tablet) 25 - 50 mg PO Q4H PRN PRN Reason: Pain Stop: 04/10/22 04:31 Last Admin: 03/16/22 09:03 Dose: 50 mg Documented by:
[2022-03-16] MEDS: IMMUN GLOBG(IGG)/MALT/IGA OV50 100 ML IV SCH (19:56)
[2022-03-16] MEDS: IMMUN GLOBG(IGG)/MALT/IGA OV50 200 ML IV SCH (21:31)
[2022-03-16] MEDS: LIDOCAINE 5% 1 PATCH TD SCH (21:32)
[2022-03-17] MEDS: IBUPROFEN 600 MG TAB PO PRN ×4 (02:05→22:28)
[2022-03-17] MEDS: PENICILLIN G POTASSIUM 4 MU in DEXTROSE 5% 100 ML IV SCH ×6 (02:05→21:43)
[2022-03-17] MEDS: traMADol HCL 50 MG TABLET PO PRN ×3 (04:49→23:13)
[2022-03-17] MEDS: ACETAMINOPHEN 325 MG TAB PO PRN ×4 (06:59→23:12)
[2022-03-17] MEDS: ENOXAPARIN INJ 40 MG/0.4 ML SYR SQ SCH (08:12)
[2022-03-17] MEDS: PANTOprazole 40 MG TAB PO SCH (08:12)
[2022-03-17] MEDS: PROMETHAZINE HCL 6.25 MG in SODIUM CHLORIDE 0.9% 50 ML IV PRN (08:20)
--- NOTE | 2022-03-17 08:39 | Neurology Progress Note ---
Date of Service March 17, 2022 Assessment & Plan (1) Ataxia: Plan: 1. MRI c/t/l spine no evidence of severe compression or enhancement 2. LP - protein CSF 81.1 3. would start IV IG 0.4 g per kg x 5 days- completed 4. continue to monitor 5. fall precautions 6. consult respiratory for inspiratory monitoring q shift- fluctuating results- same position with each check 7. PT/OT for further recommendations- transfer to [facility] once stable 8. EMG as outpatient as soon as possible once in [facility] 9. results of lyme titer was sent to ID in [place] will wait for results does not support lyme infection 10. will start gabapentin 100 mg hs x 5 days then 100 mg twice daily x 5 days then 100 mg three x daily- may be increased to back pain relief (2) Numbness and tingling in both hands: Plan: improving (3) Numbness and tingling of both legs: Plan: improving Admission and Anticipated Discharge Date Admission Date: March 12, 2022 Supervising Physician Co-Signing Physician Notes I have seen and discussed above patient with Dr Lilian Machado, neurology.Pt seen via video with JOHN Anaya FU presumed AIDP Pt felt a little stronger today, was able to stand with walker without assistance, no cranial nerve sx, notes resp mechanics less good while lying down. Strength similar with some slight increase in prox LE strength, likely fatigue. Cont to monitor of IVIG, if no response, would consider PLEx but would like to confirm dx with electrodiagnostics. will try gabapentin for back pain. Provided pt stable tomorr would be ok to dc to rehab. Malcolm Jacobo is a 56 year old male with PMH back pain, numbness tingling hands, and legs, and recent +RPR. He was seen by ID and a LP was done in the ED. ID concern ed he may have GB syndrome. He started having symptoms at the beginning of January 2022 had a herpes out break and was treated at [facility]. He did feel better but then started feeling sick again and went back to [email or web address] and had a more thorough group of labs and tested positive for syphilis. He started having progressive weakness started needing a cane to walk then a walker then unable to support his weight. He was also tested for HIV and was negative. 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 he had some vomiting this am during breakfast. He thinks they are giving him too much food and too early in the day denies CP, SOB, abdominal pain, N, V swallowing issues. Review of Systems Review of Systems: All systems reviewed & are unremarkable except as noted in HPI & below Physical Exam Physical Exam: Physical Exam: Constitutional: appearance nourished, healthy and normal Ears, Nose, Mouth and Throat: mucous membranes moist, no injection and skin normal, eyes normal Cardiovascular: normal S-1 and S-2 and regular rate and rhythm Respiratory: clear to auscultation (CTA) and no rales, ronchi or wheeze Musculoskeletal: no peripheral edema , flex ext of neck some pain but no rigidity Skin: no stigmata of neurocutaneous disease noted and normal and intact Eyes: extraocular muscles intact (EOMI) NEUROLOGIC EXAMINATION: Mental status: Alert and interactive Oriented to full date and location Oriented to person Speech fluent with no evidence of aphasia Cranial Nerves smile eye brow raise Reflexes: a reflexic bilateral UE/LE at knee and ankle jerk Sensory: decreased sensation with with vibration throughout Coordination: difficulty with lifting legs off bed using hands to help with lifting and getting himself into position , dysmetric for finger to nose Gait/Stance: sitting in bed Strength: hand neck skewer 5/5 intrinsics 5/5 biceps triceps 4/5 deltoids 4/5, hip flex 2/5 bilaterally patellar ext 5/5 flex 4/5 bilaterally plantar flex ext 3/4 leg lift off bed 3/5 Results & Data ([facility]) Vital Signs (Past 12 Hours) Vital Signs Temp Pulse Resp BP Pulse Ox 03/17/22 08:30 37.0 C 83 16 131/82 97 03/16/22 23:47 36.8 C 69 18 154/96 H 95 03/16/22 23:01 36.9 C 78 18 150/95 H 96 03/16/22 22:32 36.9 C 76 16 148/87 H 96 03/16/22 22:08 36.9 C 73 16 142/87 H 95 03/16/22 21:46 36.7 C 71 16 141/84 H 96 03/16/22 21:26 36.8 C 73 18 135/82 94 03/16/22 20:55 36.6 C 66 16 138/87 95 Diagnostic Findings no new imaging
--- NOTE | 2022-03-17 16:33 | Hospitalist Progress Note ---
Date of Service March 17, 2022 Assessment & Plan (1) Numbness and tingling of both legs: Plan: Possible GB syndrome Sensory symptoms get better immediately following administration of IgG Sensory symptoms are stable and may be getting better Numbness and tingling are improved and almost gone Numbness and tingling have improved a lot (2) Numbness and tingling in both hands: Plan: Might be related to Lyme disease VS neurosyphillis vs Guillian [place] Syndrome CT head showed no acute intracranial abnormality MRI cervical showed degenerative changes as above resulting in up to mild canal stenosis. Lumbar MRI showed mild degenerative disc disease without significant stenosis. No enhancing lesions are seen. MRI thoracic showed thickening and enhancement of the epidural space posteriorly seen from T2 through T6. no associated mass effect and this likely represents prominent epidural fat and venous structures. LP done showed no Lyme detected Protein Elevated on CSF to 81 CSF VDRL pending RPR and Lyme titer positive-history of Lyme disease. IgM and Western blot pending Neuro consult to eval for possible Guillain- [place] syndrome Continue physical therapy and occupational therapy ID recommended to continue IV Penicillin for neurosyphilis for 2 weeks Will start on IVIG x 5days for GBS Clinically feeling a little better with improvement of numbness and tingling Improved Proximal muscle weakness Pelvic girdle seems to be weaker than shoulder guarding Will have EMG as an outpatient Ataxic gait Ongoing physical therapy [facility] Proximal muscle weakness seems to be improving Chronic back pain Continue pain control with tramaol NSAID/ Tylenol Discussed with Spine orthopedic Dr. Gonzalez about the MRI results- All are benign. No Neuro compression of significance Will increase the dose of NSAID to improve pain He uses higher doses of NSAID's at home to control pain Ibuprofen has been increased to 600 mg 3 times daily as needed Gabapentin has been started by the neurologist Syphilis Patient requests for his medical information to be kept confidential and not to be disclosed to anybody without his permission Pt does not want us to mention the word syphilis in front of his RPR testing positive and VDRL test in the spinal fluid has been pending [facility] positive [facility] test. Received 1 dose of IM Penicillin 2 weeks ago outpatient Continue IV penicillin ID on board recommended to continue IV penicillin for 2 weeks Spoke to infection control that contacted department of health - Department of health already reached at people pt had sexual contact with Continue encourage patient to discuss his positive syphilis with his that she can get testing and treated (if testing positive) CSF VDRL is nonreactive Discussed with the ID in [place] and will need to finish 2 weeks course of short acting penicillin as advised Lyme disease Lyme IGG ab positive Pt said that he never treated for lyme disease in the past Western Blot pending Currently on Penicillin for Syphilis CSF Lyme disease IgG antibody 41 kDA band is reactive-Lyme disease IgG antibody Western blot is negative CSF Lyme disease IgM antibody 39 kDA band is reactive-Lyme disease IgM antibody Western blot is negative We will discuss with ID for any significance of Lyme disease IgM antibody 39 KDA band to be reactive Reviewed up-to-date and do not feel like criteria for active Lyme disease given the findings but will discuss with ID tomorrow Discussed with the ID and the patient does not have any active Lyme disease DVT px on Lovenox Code status Full code Admission and Anticipated Discharge Date Admission Date: March 12, 2022 Subjective 03/13/2022 The patient was seen and examined in medical floor His numbness and tingling are improving with administration of intravenous gammaglobulin Denies any new symptoms Complains that pain is not well controlled at the back with current pain regimen 03/14/2022 The patient was seen and examined in medical floor He has had a fall yesterday without any significant injury-sled down on the floor He complains to have some weakness involving the shoulder girdle Numbness and tingling remains same 03/15/2022 The patient was seen and examined in medical floor He complains to have weakness involving the bilateral shoulder girdle and feels that breathing is not yet any better His numbness and tingling remains stable No new symptoms 03/16/2022 The patient was seen and examined in medical floor He remains weak and being weaker in pelvic girdle than in shoulder girdle His numbness and tingling have improved No neurological symptoms except weakness in the proximal musculatures 03/17/2022 The patient was seen and examined in medical floor His numbness is almost gone and the weakness of the pelvic and shoulder girdles have been improved Denies any other symptom Review of Systems Review of Systems: All systems reviewed and are unremarkable except as noted below Musculoskeletal: Back pain has been bothering Neurologic: ImprovingNumbness tingling and weakness Physical Exam Physical Exam: Sitting on a chair without any acute distress Constitutional: average body habitus; not ill appearing ENMT: external ear and nose normal, oropharynx normal Neck: trachea midline, no thyromegaly Respiratory: no respiratory distress Auscultation: lungs clear to auscultation bilaterally Cardiovascular: Rate/Rhythm: regular rate and regular rhythm; not tachycardic Heart Sounds: normal S1 and normal S2; no murmur Extremities: no edema Gastrointestinal (Abdomen): Inspection/Auscultation: normal bowel sounds; abdomen not distended Percussion/Palpation: abdomen soft; abdomen nontender Musculoskeletal: Power of the shoulder and pelvic girdles are improving Neurologic: Alert, awake and oriented x3 Psychiatric: A+Ox3, euthymic affect Lymphatic: no cervical or axillary lymphadenopathy Results & Data Results & Data ([facility]) Vital Signs (Past 12 Hours) Vital Signs Temp Pulse Resp BP Pulse Ox 03/17/22 15:47 36.7 C 78 16 155/96 H 96 03/17/22 08:30 37.0 C 83 16 131/82 97 Laboratory Results Cardiac Enzymes 03/17/22 Range/Units 12:02 Total Creatine Kinase 59 (30-223) U/L Medications Administered Current Inpatient Medications Acetaminophen (Acetaminophen 325 Mg Tab) 650 mg PO Q4H PRN PRN Reason: pain/fever Stop: 04/09/22 20:24 Last Admin: 03/17/22 12:52 Dose: 650 mg Documented by: Enoxaparin Sodium (Enoxaparin Inj 40 Mg/0.4 Ml Syr) 40 mg SQ QAM [facility] Stop: 04/10/22 08:59 Last Admin: 03/17/22 08:12 Dose: 40 mg Documented by: Gabapentin (Gabapentin 100 Mg Cap) 100 mg PO HS [facility] Stop: 04/16/22 20:59 Penicillin G Potassium 4 mu/ (Dextrose) 108 mls @ 100 mls/hr IV Q4H [facility]; Protocol Stop: 03/21/22 00:00 Last Infusion: 03/17/22 15:32 Dose: Infused Documented by: Promethazine HCl 6.25 mg/ (Sodium Chloride) 50.25 mls @ 201 mls/hr IV Q6H PRN PRN Reason: Nausea And Vomiting Stop: 04/09/22 23:32 Last Infusion: 03/17/22 08:46 Dose: Infused Documented by: Ibuprofen (Ibuprofen 600 Mg Tab) 600 mg PO Q6H PRN PRN Reason: Mild Pain Stop: 04/09/22 20:24 Last Admin: 03/17/22 16:12 Dose: 600 mg Documented by: Lidocaine (Lidocaine 5% 1 Patch) 1 patch TD [facility] Stop: 04/09/22 20:19 Last Admin: 03/16/22 21:32 Dose: 1 patch Documented by: Lorazepam (Lorazepam 2 Mg/1 Ml Vial) 0.25 mg IV Q4H PRN PRN Reason: Anxiety Stop: 04/09/22 20:24 Last Admin: 03/15/22 04:32 Dose: 0.25 mg Documented by: Lorazepam (Lorazepam 2 Mg/1 Ml Vial) 0.25 mg IV Q1H PRN PRN Reason: anxiety pre/during mri Stop: 04/09/22 20:24 Miscellaneous (Remove Lidoderm Patch) 1 ea N/A [facility] Stop: 04/10/22 08:59 Last Admin: 03/17/22 08:12 Dose: 1 ea Documented by: Pantoprazole Sodium (Pantoprazole 40 Mg Tab) 40 mg PO [facility] Stop: 03/17/22 18:14 Last Admin: 03/17/22 08:12 Dose: 40 mg Documented by: Polyethylene Glycol (Polyethylene (Miralax) 17 Gm Pack) 17 gm PO DAILY PRN PRN Reason: Constipation Stop: 04/12/22 14:16 Tramadol HCl (Tramadol Hcl 50 Mg Tablet) 25 - 50 mg PO Q4H PRN PRN Reason: Pain Stop: 04/10/22 04:31 Last Admin: 03/17/22 04:49 Dose: 50 mg Documented by:
[2022-03-17] MEDS: LIDOCAINE 5% 1 PATCH TD SCH (20:15)
[2022-03-17] MEDS ORDERED: GABAPENTIN 100 MG CAP PO SCH (21:00)
[2022-03-18] MEDS ORDERED: MoRPHine SULFATE 2 MG/ML CARP IV PRN (01:06)
[2022-03-18] MEDS: PENICILLIN G POTASSIUM 4 MU in DEXTROSE 5% 100 ML IV SCH ×3 (01:45→09:37)
[2022-03-18] MEDS: ACETAMINOPHEN 325 MG TAB PO PRN ×2 (04:41→08:55)
[2022-03-18] MEDS: IBUPROFEN 600 MG TAB PO PRN (04:41)
[2022-03-18] MEDS: traMADol HCL 50 MG TABLET PO PRN (06:02)
[2022-03-18] MEDS: ENOXAPARIN INJ 40 MG/0.4 ML SYR SQ SCH (08:55)
--- NOTE | 2022-03-18 13:44 | Hospitalist Progress Note ---
Date of Service March 18, 2022 Assessment & Plan (1) Numbness and tingling of both legs: Plan: Possible GB syndrome Sensory symptoms get better immediately following administration of IgG Sensory symptoms are stable and may be getting better Numbness and tingling are improved and almost gone Numbness and tingling have improved a lot Numbness has resolved and proximal muscles weakness have been improving Will need to continue physical therapy (2) Numbness and tingling in both hands: Plan: Might be related to Lyme disease VS neurosyphillis vs Guillian [place] Syndrome CT head showed no acute intracranial abnormality MRI cervical showed degenerative changes as above resulting in up to mild canal stenosis. Lumbar MRI showed mild degenerative disc disease without significant stenosis. N o enhancing lesions are seen. MRI thoracic showed thickening and enhancement of the epidural space posteriorly seen from T2 through T6. no associated mass effect and this likely represents prominent epidural fat and venous structures. LP done showed no Lyme detected Protein Elevated on CSF to 81 CSF VDRL pending RPR and Lyme titer positive-history of Lyme disease. IgM and Western blot pending Neuro consult to eval for possible Guillain- [place] syndrome Continue physical therapy and occupational therapy ID recommended to continue IV Penicillin for neurosyphilis for 2 weeks Will start on IVIG x 5days for GBS Clinically feeling a little better with improvement of numbness and tingling Improved and resolved Proximal muscle weakness Pelvic girdle seems to be weaker than shoulder guarding Will have EMG as an outpatient Ataxic gait Ongoing physical therapy Awaiting placement to [facility] Proximal muscle weakness seems to be improving Continues to improve Chronic back pain Continue pain control with tramaol NSAID/ Tylenol Discussed with Spine orthopedic Dr. Gonzalez about the MRI results- All are benign. No Neuro compression of significance Will increase the dose of NSAID to improve pain He uses higher doses of NSAID's at home to control pain Ibuprofen has been increased to 600 mg 3 times daily as needed Gabapentin has been started by the neurologist Syphilis Patient requests for his medical information to be kept confidential and not to be disclosed to anybody without his permission Pt does not want us to mention the word syphilis in front of his RPR testing positive and VDRL test in the spinal fluid has been pending Patient [facility] of positive syphilis test. Received 1 dose of IM Penicillin 2 weeks ago outpatient Continue IV penicillin ID on board recommended to continue IV penicillin for 2 weeks Spoke to infection control that contacted department of health - Department of health already reached at people pt had sexual contact with Continue encourage patient to discuss his positive syphilis with his that she can get testing and treated (if testing positive) CSF VDRL is nonreactive Discussed with the ID in [place] and will need to finish 2 weeks course of short acting penicillin as advised Will have outpatient ID appointment Lyme disease Lyme IGG ab positive Pt said that he never treated for lyme disease in the past Western Blot pending Currently on Penicillin for Syphilis CSF Lyme disease IgG antibody 41 kDA band is reactive-Lyme disease IgG antibody Western blot is negative CSF Lyme disease IgM antibody 39 kDA band is reactive-Lyme disease IgM antibody Western blot is negative We will discuss with ID for any significance of Lyme disease IgM antibody 39 KDA band to be reactive Reviewed up-to-date and do not feel like criteria for active Lyme disease given the findings but will discuss with ID tomorrow Discussed with the ID and the patient does not have any active Lyme disease No active Lyme disease and does not require to be treated DVT px on Lovenox Code status Full code Admission and Anticipated Discharge Date Admission Date: March 12, 2022 Subjective 03/13/2022 The patient was seen and examined in medical floor His numbness and tingling are improving with administration of intravenous gammaglobulin Denies any new symptoms Complains that pain is not well controlled at the back with current pain regimen 03/14/2022 The patient was seen and examined in medical floor He has had a fall yesterday without any significant injury-sled down on the floor He complains to have some weakness involving the shoulder girdle Numbness and tingling remains same 03/15/2022 The patient was seen and examined in medical floor He complains to have weakness involving the bilateral shoulder girdle and feels that breathing is not yet any better His numbness and tingling remains stable No new symptoms 03/16/2022 The patient was seen and examined in medical floor He remains weak and being weaker in pelvic girdle than in shoulder girdle His numbness and tingling have improved No neurological symptoms except weakness in the proximal musculatures 03/17/2022 The patient was seen and examined in medical floor His numbness is almost gone and the weakness of the pelvic and shoulder girdles have been improved Denies any other symptom 03/18/2022 The patient was seen and examined in medical floor He complains to have ongoing weakness involving the pelvic and shoulder girdles which have been improving He is numbness and tingling of the extremities has improved He has had precordial discomfort/pain and upper and EKG remained unremarkable and normal Review of Systems Review of Systems: All systems reviewed and are unremarkable except as noted below Musculoskeletal: Back pain has been bothering Neurologic: ImprovingNumbness tingling and weakness Physical Exam Physical Exam: Sitting on a chair without any acute distress Constitutional: average body habitus; not ill appearing ENMT: external ear and nose normal, oropharynx normal Neck: trachea midline, no thyromegaly Respiratory: no respiratory distress Auscultation: lungs clear to auscultation bilaterally Cardiovascular: Rate/Rhythm: regular rate and regular rhythm; not tachycardic Heart Sounds: normal S1 and normal S2; no murmur Extremities: no edema Gastrointestinal (Abdomen): Inspection/Auscultation: normal bowel sounds; abdomen not distended Percussion/Palpation: abdomen soft; abdomen nontender Musculoskeletal: No acute arthritis involving any joint. Pelvic and shoulder girdle weakness seem to be improving Psychiatric: A+Ox3, euthymic affect Lymphatic: no cervical or axillary lymphadenopathy Results & Data Results & Data ([facility]) Vital Signs (Past 12 Hours) Vital Signs Temp Pulse Resp BP Pulse Ox 03/18/22 08:22 65 18 149/91 H 96 03/18/22 07:17 36.5 C 62 18 165/92 H 96 Medications Administered Current Inpatient Medications Acetaminophen (Acetaminophen 325 Mg Tab) 650 mg PO Q4H PRN PRN Reason: pain/fever Stop: 04/09/22 20:24 Last Admin: 03/18/22 08:55 Dose: 650 mg Documented by: Enoxaparin Sodium (Enoxaparin Inj 40 Mg/0.4 Ml Syr) 40 mg SQ QAM [facility] Stop: 04/10/22 08:59 Last Admin: 03/18/22 08:55 Dose: 40 mg Documented by: Gabapentin (Gabapentin 100 Mg Cap) 100 mg PO HS [facility] Stop: 04/16/22 20:59 Last Admin: 03/17/22 20:15 Dose: 100 mg Documented by: Penicillin G Potassium 4 mu/ (Dextrose) 108 mls @ 100 mls/hr IV Q4H [facility]; Protocol Stop: 03/21/22 00:00 Last Infusion: 03/18/22 10:45 Dose: Infused Documented by: Promethazine HCl 6.25 mg/ (Sodium Chloride) 50.25 mls @ 201 mls/hr IV Q6H PRN PRN Reason: Nausea And Vomiting Stop: 04/09/22 23:32 Last Infusion: 03/17/22 08:46 Dose: Infused Documented by: Ibuprofen (Ibuprofen 600 Mg Tab) 600 mg PO Q6H PRN PRN Reason: Mild Pain Stop: 04/09/22 20:24 Last Admin: 03/18/22 04:41 Dose: 600 mg Documented by: Lidocaine (Lidocaine 5% 1 Patch) 1 patch TD [facility] Stop: 04/09/22 20:19 Last Admin: 03/17/22 20:15 Dose: 1 patch Documented by: Lorazepam (Lorazepam 2 Mg/1 Ml Vial) 0.25 mg IV Q4H PRN PRN Reason: Anxiety Stop: 04/09/22 20:24 Last Admin: 03/15/22 04:32 Dose: 0.25 mg Documented by: Lorazepam (Lorazepam 2 Mg/1 Ml Vial) 0.25 mg IV Q1H PRN PRN Reason: anxiety pre/during mri Stop: 04/09/22 20:24 Miscellaneous (Remove Lidoderm Patch) 1 ea N/A QAM [facility] Stop: 04/10/22 08:59 Last Admin: 03/18/22 08:55 Dose: 1 ea Documented by: Morphine Sulfate (Morphine Sulfate 2 Mg/Ml [place]) 2 mg IV Q4H PRN PRN Reason: severe pain (6-10) Stop: 04/01/22 01:05 Last Admin: 03/18/22 01:24 Dose: 2 mg Documented by: Polyethylene Glycol (Polyethylene (Miralax) 17 Gm Pack) 17 gm PO DAILY PRN PRN Reason: Constipation Stop: 04/12/22 14:16 Tramadol HCl (Tramadol Hcl 50 Mg Tablet) 25 - 50 mg PO Q4H PRN PRN Reason: Pain Stop: 04/10/22 04:31 Last Admin: 03/18/22 06:02 Dose: 50 mg Documented by:
[2022-03-18 18:21] LABS: HIV 1,2 Ag,Ab 4th gen REPEATEDLY REACTIVE (NON-REACTIVE)
--- NOTE | 2022-03-19 07:56 | Discharge Summary ---
Date of Service March 19, 2022 Admission HPI Per Admitting Provider History obtained from patient and records. Medical history significant for recent diagnosis of syphilis. 4 months ago, patient noted intermittent fever, chills with occasional headaches. No cough symptoms. COVID-19 exposure at home. Patient received COVID-19 vaccination. Last month, patient developed a mouth sore attributed to HSV by local urgent care center. Improved by outpatient antiviral course. Patient had recurrence of mouth sore a few weeks later. STD testing performed by local urgent care center. Patient tested positive for syphilis. Patient admits to sexual contact with other men without the knowledge of his . Patient directed to local [facility] for evaluation of positive syphilis test. Outpatient HIV test negative as per patient. Patient given 1 dose of IM Penicillin 2 weeks ago for primary syphilis as per patient. Last week, patient noted worsening mid back pain with some radiation to the upper arms and lower extremities. Progressive lower extremity weakness and nu mbness as well. Some tingling on both feet. Patient having more trouble walking and requiring a cane to walk. No recent trauma. No recollection of recent tick exposure. Patient sent to ER for evaluation for worsening symptoms. Diagnostic LP done at the ER. Penicillin administered at the ER for possible tertiary syph[place] [facility] [place]. 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 Admission Exam Per Admitting Provider Physical Exam: GENERAL: Slightly uncomfortable, pleasant, no respiratory distress SKIN: Normal color, warm HEENT: bespectacled, pinkp alpebral conjunctivae, no ptosis, moist buccal mucosa NECK : Supple, no tenderness CHEST : CTA, no tenderness HEART : RRR, no obvious murmurs BACK : Mid back tenderness ABDOMEN: no distention, nontender EXTREMITIES : No LE swelling/tenderness, no other conspicuous deformities noted NEUROLOGIC : Coherent, no facial asymmetry, MMTS : BUE 4/5, BLE 3/5, gait and stance not assessed Principal Diagnosis Numbness and tingling in both legs. Proximal muscle weakness. Guillain-Aguilar syndrome, neurosyphilis. Chronic back pain, history of Lyme disease Discharge Exam Sitting on a chair without any acute distress Constitutional average body habitus; not ill appearing ENMT external ear and nose normal, oropharynx normal Neck trachea midline, no thyromegaly Respiratory no respiratory distress Auscultation: lungs clear to auscultation bilaterally Cardiovascular Rate/Rhythm: regular rate and regular rhythm; not tachycardic Heart Sounds: normal S1 and normal S2; no murmur Extremities: no edema Gastrointestinal (Abdomen) Inspection/Auscultation: normal bowel sounds; abdomen not distended Percussion/Palpation: abdomen soft; abdomen nontender Psychiatric A+Ox3, euthymic affect Lymphatic no cervical or axillary lymphadenopathy Discharge Data Allergies Allergy/AdvReac Type Severity Reaction Status Date / Time No Known Allergies Allergy Unverified 03/10/22 15:10 Consultations 03/10/22 20:14 ED Decision to Admit Stat 03/10/22 20:30 Consult Infectious Diseases Routine 03/12/22 14:35 Consult Neurology Routine Ordered Studies 03/10/22 14:37 CT head/brain wo con Stat 03/11/22 00:18 MR cervical spine wo/w con Urgent 03/11/22 00:44 MR lumbar spine wo/w con Urgent 03/11/22 00:45 MR thoracic spine wo/w con Urgent Hospital Course (1) Numbness and tingling of both legs: Possible GB syndrome Sensory symptoms get better immediately following administration of IgG Sensory symptoms are stable and may be getting better Numbness and tingling are improved and almost gone Numbness and tingling have improved a lot Numbness has resolved and proximal muscles weakness have been improving Will need to continue physical therapy (2) Numbness and tingling in both hands: Might be related to Lyme disease VS neurosyphillis vs [place] Syndrome CT head showed no acute intracranial abnormality MRI cervical showed degenerative changes as above resulting in up to mild canal stenosis. Lumbar MRI showed mild degenerative disc disease without significant stenosis. No enhancing lesions are seen. MRI thoracic showed thickening and enhancement of the epidural space posteriorly seen from T2 through T6. no associated mass effect and this likely represents prominent epidural fat and venous structures. LP done showed no Lyme detected Protein Elevated on CSF to 81 CSF VDRL pending RPR and Lyme titer positive-history of Lyme disease. IgM and Western blot pending Neuro consult to eval for possible Guillain- [place] syndrome Continue physical therapy and occupational therapy ID recommended to continue IV Penicillin for neurosyphilis for 2 weeks Will start on IVIG x 5days for GBS Clinically feeling a little better with improvement of numbness and tingling Improved and resolved Proximal muscle weakness Pelvic girdle seems to be weaker than shoulder guarding Will have EMG as an outpatient Ataxic gait Ongoing physical therapy Awaiting placement [facility] Proximal muscle weakness seems to be improving Continues to improve Chronic back pain Continue pain control with tramaol NSAID/ Tylenol Discussed with Spine orthopedic Dr. Gonzalez about the MRI results- All are benign. No Neuro compression of significance Will increase the dose of NSAID to improve pain He uses higher doses of NSAID's at home to control pain Ibuprofen has been increased to 600 mg 3 times daily as needed Gabapentin has been started by the neurologist Syphilis Patient requests for his medical information to be kept confidential and not to be disclosed to anybody without his permission Pt does not want us to mention the word syphilis in front of his RPR testing positive and VDRL test in the spinal fluid has been pending [facility] positive [facility]philis test. Received 1 dose of IM Penicillin 2 weeks ago outpatient Continue IV penicillin ID on board recommended to continue IV penicillin for 2 weeks Spoke to infection control that contacted department of health - Department of health already reached at people pt had sexual contact with Continue encourage patient to discuss his positive syphilis with his that she can get testing and treated (if testing positive) CSF VDRL is nonreactive Discussed with the ID in [place] and will need to finish 2 weeks course of short acting penicillin as advised Will have outpatient ID appointment Lyme disease Lyme IGG ab positive Pt said that he never treated for lyme disease in the past Western Blot pending Currently on Penicillin for Syphilis CSF Lyme disease IgG antibody 41 kDA band is reactive-Lyme disease IgG antibody Western blot is negative CSF Lyme disease IgM antibody 39 kDA band is reactive-Lyme disease IgM antibody Western blot is negative We will discuss with ID for any significance of Lyme disease IgM antibody 39 KDA band to be reactive Reviewed up-to-date and do not feel like criteria for active Lyme disease given the findings but will discuss with ID tomorrow Discussed with the ID and the patient does not have any active Lyme disease No active Lyme disease and does not require to be treated DVT px on Lovenox Code status Full code Total Time Total Time Spent Total Time Spent (In Minutes): 35 minutes Discharge Plan Discharge Items Patient Disposition: Transfer Inpatient Rehab Fac Reason For Visit: BACK PAIN Discharge Diagnosis: Numbness and tingling in both legs. Proximal muscle weakness. Guillain-Aguilar syndrome, neurosyphilis. Chronic back pain, history of Lyme disease Condition on Discharge: Fair Activity: Resume your previous activity Non-emergency contact: Primary Care Provider Call non-emergency contact if: you have any medication questions Follow-up/Referrals: [facility] [Other] (The Infectious Disease Office will call you to set up a follow up appointment.) Lilian Miller PA-C [Physician [employer] Technical Assistant] - (Date & Time 05/06/2022 11:20 AM Provider Lilian Miller PA-C Department Neurology [facility] ) Navjot Moraes DO [Physician] - Diet: Regular Addtl Attending Provider Instructions: Please take precautions to avoid fall Continue the physical therapy as advised Continue incentive spirometry Please make an appointment with your primary care physician within 7 days following discharge from the facility [facility] will call you with an appointment for follow-up Pending Studies at Discharge: No Stand-Alone Forms: My [facility] [employer] Skilled Items Patient informed of condition?: Yes DNR: No Discharge Level of Care: Acute rehab Communicable Disease: No Discharge Prognosis: Stable Lines: None Urinary Catheter: No Medications and DC Order Prescriptions: New tramadol 50 mg Tablet 25 - 50 mg PO Q4H PRN (Reason: pain) 5 Days Qty: 20 RF: 0 lidocaine 5 % Adhesive Patch,Medicated 1 patch transdermal HS 30 Days Qty: 30 RF: 0 gabapentin 100 mg Capsule 100 mg PO HS 30 Days Qty: 30 RF: 0 penicillin G potassium 5 million unit recon soln 4 mmu IV Q4H 7 Days Qty: 1 RF: 0 Changed ibuprofen [Advil] 200 mg Tablet 600 mg PO UD PRN (Reason: Pain) Qty: 0 RF: 0 Discontinued naproxen sodium [Aleve] 220 mg Tablet 220 mg PO UD PRN (Reason: Pain) RF: 0 Discharge Orders: Discharge Order (Routine); Ordered 03/18/22 Ordered By: Eric Hancock Admission Data Admit Date/Time: 03/12/22 08:01 Attending Provider: Eric Hancock Admit Provider: Lois Woodward Primary Care Provider: PCP,NO Other Providers: Felix Frost ; Michelet Castelan ; Alison Kevin ; Brody Kent I. ; Volodymyr Mckeon II ; Jaymie Angel ; Jason Bal ; Roc Calderon ; Yamini Bridges ; Tyler Seals ; [facility] ; [facility] [place] ; [place] Other Interventions: Discharge Summary Assessment (RN) Last Done: 03/18/22 16:21
--- NOTE | 2022-03-19 11:57 | Electrocardiogram Report ---
Test Reason : Blood Pressure : / mmHG Vent. Rate : 059 BPM Atrial Rate : 059 BPM P-R Int : 172 ms QRS Dur : 086 ms QT Int : 420 ms P-R-T Axes : 045 049 065 degrees QTc Int : 415 ms Sinus bradycardia Moderate voltage criteria for LVH, may be normal variant Nonspecific T wave abnormality Abnormal ECG No previous ECGs available Confirmed by Luis Manuel Magana ([id number]) on 03/19/2022 11:57:02 AM Referred By: REFERRED SELF Confirmed By:Luis Manuel Magana
[2022-03-23 12:02] LABS: HIV 1 Ab NEGATIVE (NEGATIVE); HIV 2 Ab NEGATIVE (NEGATIVE)
== END 2022-03-18 16:00 | DRG 95 ==
LOC: 3W 12:05 → ED 12:05 → 3W 23:07 → SUATTDRO 03-12 08:01